=== PATIENT | female | born 1950 | race Caucasian/White ===

== ENCOUNTER 2023-05-12 09:17 | Outpatient (AMB) | payer MEDICARE, SELFPAY ==
--- NOTE | 2023-05-12 09:23 | A.OFFVIS_ITS ---
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 Accompanied by: Spouse Allergies ibuprofen [IBUPROFEN] Allergy (Unknown, Verified 05/12/23 09:28) ABD PAIN Penicillins [PENICILLINS] Allergy (Unknown, Verified 05/12/23 09:28) RASH amlodipi Adverse Reaction (Intermediate, Uncoded 05/12/23 09:45) Unknown Medication List - Last Reconciled 05/12/23 by Brent Dillard MD carisoprodol (Soma) 350 mg PO TID clonazepam 0.5 mg PO BID diltiazem HCl ER 60 mg PO Q12H ketorolac 0.5% drps ophthalmic (eye) latanoprost 0.005% drps ophthalmic (eye) netarsudil 0.02% (Rhopressa) drps ophthalmic (eye) onabotulinumtoxinA (Botox) 50 units intradermal tramadol 50 mg PO BEDTIME HPI HPI Comments History of Present Illness Details Due to this here for consultation regarding left bundle-branch block. It seems that she has been seen at [facility] for a long time but not in the last couple of years. She states she has had the problem for more than a decade or so. She also has hypertension. She has been having longstanding palpitations and several years ago, diltiazem was started and it seems that septal lot. She is also tried amlodipine few years a pack for hypertension and that led to leg swelling. No known coronary artery disease or myocardial infarction or cardiomyopathy or any other cardiac issues or otherwise. She has lot of neck and back issues and previous operations for the same. [facility] Surgical History (Updated 05/12/23 @ 09:31 by Alvina Norwood) History of back surgery Family History (Updated 05/12/23 @ 09:32 by Alvina Norwood) Father Heart problem Mother Heart problem Social History (Updated 05/12/23 @ 09:33 by Alvina Norwood) Alcohol intake: never Patient Tobacco Use Status: Never used Tobacco Substance Use Type: Marijuana Review of Systems Const Denies chills, Denies daytime sleepiness, Denies fatigue, Denies fever(s), Denies frequent falls, Denies night sweats, Denies snoring, Denies weakness, Denies weight gain and Denies weight loss Eyes Denies loss of vision ENT Denies dizziness and Denies hearing loss Card Denies chest pain, Denies chest pain with activity, Denies syncope, Denies rapid heart rate, Denies edema, Denies claudication, Denies leg edema, Denies lightheadedness, Denies palpitations, Denies dyspnea, Denies dyspnea on exertion and Denies orthopnea Resp Denies cough, Denies excessive phlegm production, Denies dyspnea, Denies dyspnea on exertion, Denies snoring and Denies wheezing GI Denies abdominal pain, Denies hematochezia, Denies change in bowel habits, Denies change in stool character, Denies heartburn, Denies nausea and Denies vomiting Denies hematuria, Denies urinary frequency and Denies dysuria Musc Denies arthralgias, Denies muscle weakness, Denies numbness and Denies tingling Skin/Breast Denies nail changes and Denies rash Neuro Denies Abnormal speech present, Denies dizziness, Denies syncope, Denies frequent falls, Denies loss of vision, Denies memory loss, Denies numbness, D enies tingling and Denies weakness Psych Denies depression and Denies memory loss Endo Denies fatigue and Denies palpitations Aller/Immun Denies wheezing Physical Exam Vital Signs: Last Vital Signs Pulse 65 05/12/23 09:28 BP 134/76 05/12/23 09:28 BMI result Body Mass Index 25.8 Const General: comfortable and no acute distress Orientation/consciousness: patient oriented x3 HEENT Other: Unremarkable Head: Yes normal to inspection Neck Neck: Yes normal visual inspection Chest Chest palpation & inspection: normal inspection of the chest Resp Auscultation: clear to auscultation bilaterally Cardio Palpation: normal PMI Heart sounds: S1 normal heart sound present, S2 normal heart sound present, no gallops, no murmurs and no rubs GI Palpation (GI): Soft to palpation Back/Spine/Pelvis Other: unremarkable Skin General skin exam: no rashes or lesions noted Neuro General: patient oriented x3 Speech: No Abnormal speech present Extrem General: Yes normal to inspection Psych Mental Status: mental status grossly normal Office Procedures EKG Details: EKG with possible ectopic atrial rhythm at 69/Min; incomplete left bundle-branch block pattern. [id number], Complete Assessment & Plan Assessment & Plan (1) Incomplete left bundle branch block (LBBB): Code(s): I44.7 - Left bundle-branch block, unspecified (2) Ectopic atrial rhythm: Code(s): I49.1 - Atrial premature depolarization Plan Need to review old records. Will request them from [facility]. No specific med changes for now. Will request an echocardiogram for cardiac function assessment. Discussed with significant other. Orders: Orders CA echo transthoracic complete Today I44.7 - Left bundle-branch block, unspecified Coding Level of Care Code New Pt Level 3 (77845) Diagnoses Incomplete left bundle branch block (LBBB) I44.7 Ectopic atrial rhythm I49.1 CPT Codes EKG - CPT: 09560-[id number], Complete ([id number])
[2023-05-12 09:28] VITALS: BP 134/76; PULSE 65; BMI 25.8
== END 2023-05-12 09:56 | disposition home or self-care (01) ==
PROVIDERS: PCP Internal Medicine; Visit Provider Internal Medicine
DX: I44.7 Left bundle-branch block, unspecified (principal); I49.1 Atrial premature depolarization
CPT/HCPCS: 93010; 99203

== ENCOUNTER → 2023-05-12 09:17 | Outpatient (BNVA) | payer MEDICARE, SELFPAY | PROVIDERS: PCP Internal Medicine; Visit Provider Internal Medicine | DX: I44.7 Left bundle-branch block, unspecified (principal); I49.1 Atrial premature depolarization | CPT/HCPCS: 93005; 99202 ==

== ENCOUNTER → 2023-06-04 09:39 | Outpatient (REF) | payer MEDICARE, SELFPAY ==
--- NOTE | 2023-06-04 09:42 | CA_ITS ---
Transthoracic Echocardiogram Patient (Last, First, Middle): Taryn Washburn A Gender: Female Date of : 1950 Age: 72 Procedure Date: 06/04/2023 Procedure Type: Transthoracic Echocardiogram Location: OP Height: 162.56 cm Weight: 65.77 kg BSA: 1.71 m2 Heart Rate: bpm BP: 130 / 80 mmHg Anesthesiologists' Assistant: TO Referring MD: Brent Dillard MD Inspector Metal Fabricating: Gregorio Adame MD Symptoms: I44.7 - Left bundle-branch block, unspecified Study Quality: Fair/Contrast ECG Rhythm: Sinus Conclusions: - 1. Normal LV ejection fraction of 60 65% with impaired relaxation filling pattern 2. Cardiac valvular Dopplers within normal limits 3. Normal RV systolic pressure Findings Procedure Information Contrast agent, definity, is being given per protocol without apparent complications. Left Ventricle Normal left ventricular size, thickness, and systolic function. The visually estimated ejection fraction is between 60-65%. There is paradoxical septal motion consistent with a left bundle branch block. Spectral Doppler is indicative of an impaired relaxation filling pattern. E/E prime ratio is between 8 and 15 consistent with indeterminate filling pressures. Right Ventricle Normal right ventricular cavity size and systolic function. Atria The left atrium is normal in size. There is no evidence of interatrial shunt. The right atrium was not well visualized. Aortic Valve The aortic valve structure and function is likely normal. There is no aortic valve stenosis. There is no aortic valve regurgitation. Mitral Valve Likely normal mitral valve structure and function. There is trace mitral valve regurgitation. There is no mitral valve stenosis. Pulmonic Valve The pulmonic valve was not well visualized. Tricuspid Valve Likely normal tricuspid valve structure and function. There is trace tricuspid valve regurgitation. The right ventricular systolic pressure is normal. The right ventricular systolic pressure is 27 mmHg. Normal right atrial pressure. There is no evidence of pulmonary hypertension. Great Vessels All visible segments of the aorta are normal in size. The pulmonary artery was not well visualized. Venous The inferior vena cava is normal in size and collapses greater than 50% with inspiration. Pericardium/Pleural The pericardium was not well visualized. Prior Study Comparison No prior study available for comparison. Measurements 2D Linear Measurements IVSd: 1.11 0.6-0.9/0.6-1.0 cm LVIDd: 4.21 3.9-5.3/4.2-5.9 cm LVIDd Index: 2.46 2.4-3.2/2.2-3.1 cm/m2 LVIDs: 2.98 2.0-3.6 cm LVPWd: 1.00 0.7-1.1 cm LA Diam: 3.10 2.7-3.8/3.0-4.0 cm LAIDs Index: 1.81 1.5-2.3 cm/m2 LV Mass: 184.31 67-162/88-224 g LV Mass Index: 107.78 43-95/49-115 g/m2 LVOT Diam: 2.10 3.0+(-)1.3 cm 2D Systolic Function EF 4C: 67.60 >55% EF 2C: 57.90 >55% EF BiP: 62.40 >55% Mitral Valve MV Pk E: 0.63 MV PK A: 0.71 MV Decel Time: 252.00 E/A: 0.90 E'Lateral: 7.62 E'Medial: 5.22 E/E' Med: 12.00 E/E' Lat: 8.20 PHT: 74.00 MVA PHT: 2.97 Decel Kershaw: 2.49 Aortic Valve AoV Pk Seymour: 1.39 AoV Mn Seymour: 0.92 AoV VTI: 0.27 AoV Pk Grad: 8.00 Aov Mn Grad: 4.00 HUMBERTO Cont.VTI: 3.54 LVOT LVOT Pk Seymour: 1.14 LVOT Mn Seymour: 0.73 LVOT VTI: 0.28 LVOT Pk Grad: 5.00 LVOT Mn Grad: 3.00 LVOT Diam: 2.10 LVOT Area: 3.46 Diastolic Function MV Pk E: 0.63 MV Pk A: 0.71 E/A: 0.90 E'Medial: 5.22 E/E' Med: 12.00 E' Laterial: 7.62 E/E' Lat: 8.20 Right Ventricle TAPSE (mm): 22.60 TVS' Seymour: 10.00 Tricuspid Valve TR Pk Seymour: 2.44 TR Pk Grad: 24.00 RA Press: 3.00 RVSP: 27.00 Great Vessels Aorta Sinus of Valsalva: 3.00 2.0-3.5 cm Ao Asc: 3.10 2.1-3.4 cm Updated in Other Vendor System with Status of Final Gregorio Adame MD electronically signed on 06/05/2023 11:08:39 AM with status of Final
== END ==
LOC: HO.CARD 09:39
PROVIDERS: PCP Internal Medicine; Visit Provider Internal Medicine
DX: I44.7 Left bundle-branch block, unspecified (principal)
CPT/HCPCS: 93306; Q9957

== ENCOUNTER → 2023-06-04 09:42 | Outpatient (BNV) | payer MEDICARE, SELFPAY | PROVIDERS: PCP Internal Medicine; Visit Provider Internal Medicine Cardiovascular Disease | DX: R94.31 Abnormal electrocardiogram [ECG] [EKG] (principal); I44.7 Left bundle-branch block, unspecified | CPT/HCPCS: 93306 ==

== ENCOUNTER 2023-08-03 10:39 | Outpatient (AMB) | payer MEDICARE, SELFPAY ==
[2023-08-03 10:42] VITALS: BP 130/70; PULSE 68; O2SAT 99; BMI 25.4
--- NOTE | 2023-08-03 10:42 | MHC.OFFVIS ---
Vital Signs 08/03/23 10:42 Height 5 ft 3 in Weight 143 lb 4.807 oz BMI 25.4 BP 130/70 Blood Pressure Location Lt brachial Position Sitting Pulse 68 Pulse Source Pulse Oximeter Pulse Oximetry (%) 99 Oxygen Delivery Method Room Air Intake Visit Reasons: f/up echo Allergies ibuprofen [IBUPROFEN] Allergy (Unknown, Verified 05/12/23 09:28) ABD PAIN Penicillins [PENICILLINS] Allergy (Unknown, Verified 05/12/23 09:28) RASH amlodipi Adverse Reaction (Intermediate, Uncoded 05/12/23 09:45) Unknown Medication List - Last Reconciled 08/03/23 by Brent Dillard MD carisoprodol (Soma) 350 mg PO TID clonazepam 0.5 mg PO BID diltiazem HCl ER 60 mg PO Q12H ketorolac 0.5% drps ophthalmic (eye) latanoprost 0.005% drps ophthalmic (eye) netarsudil 0.02% (Rhopressa) drps ophthalmic (eye) onabotulinumtoxinA (Botox) 50 units intradermal tramadol 50 mg PO BEDTIME HPI Comments Details: Taryn Returns for follow-up. Recently seen in consultation regarding left bundle-branch block. She used to go to [facility] in the past but not recently. She has had the problem for a long time, more than a decade or so. Also has hypertension. Longstanding palpitations for which she Has been on diltiazem, again long-term. No known coronary disease, myocardial infarction or cardiomyopathy. [facility] Surgical History (Updated 05/12/23 @ 09:31 by Alvina Norwood) History of back surgery Family History (Updated 05/12/23 @ 09:32 by Alvina Norwood) Father Heart problem Mother Heart problem Social History (Updated 05/12/23 @ 09:33 by Alvina Norwood) Alcohol intake: never Patient Tobacco Use Status: Never used Tobacco Substance Use Type: Marijuana Review of Systems Const Denies weakness ENT Denies dizziness Card Denies chest pain, Denies chest pain with activity, Denies syncope, Denies rapid heart rate, Denies pedal edema, Denies edema, Denies leg edema, Denies lightheadedness, Denies palpitations, Denies dyspnea, Denies dyspnea on exertion and Denies orthopnea Resp Denies cough, Denies dyspnea and Denies dyspnea on exertion GI Denies hematochezia and Denies change in stool character Musc Denies abnormal gait, Denies muscle cramps, Denies muscle weakness, Denies numbness, Denies radiating pain into limb and Denies tingling Neuro Denies abnormal gait, Denies dizziness, Denies syncope, Denies numbness, Denies tingling and Denies weakness Endo Denies palpitations Physical Exam Vital Signs: Last Vital Signs Pulse 68 08/03/23 10:42 BP 130/70 08/03/23 10:42 Pulse Ox 99 08/03/23 10:42 Oxygen Delivery Method Room Air 08/03/23 10:42 BMI result Body Mass Index 25.4 Const General: comfortable and no acute distress Orientation/consciousness: patient oriented x3 HEENT Other: Unremarkable Head: Yes normal to inspection Neck Neck: Yes normal visual inspection Chest Chest palpation & inspection: normal inspection of the chest Resp Auscultation: clear to auscultation bilaterally Cardio Palpation: normal PMI Heart sounds: S1 normal heart sound present, S2 normal heart sound present, no gallops, no murmurs and no rubs GI Palpation (GI): Soft to palpation Back/Spine/Pelvis Other: unremarkable Skin General skin exam: no rashes or lesions noted Neuro General: patient oriented x3 Extrem General: Yes normal to inspection Psych Mental Status: mental status grossly normal Assessment & Plan Assessment & Plan (1) Incomplete left bundle branch block (LBBB): Code(s): I44.7 - Left bundle-branch block, unspecified Category: Medical (2) Ectopic atrial rhythm: Code(s): I49.1 - Atrial premature depolarization Category: Medical Plan In the recent EKG, possible ectopic atrial rhythm and with an incomplete left bundle-branch block pattern. Echocardiogram with LVEF of 60-65% and otherwise unremarkable. Exercise stress echocardiogram from [facility] 2014 was negative. Echo exercise duration was 9 minutes 20 seconds. And old NAVYA from 2007 from [facility] shows underlying sinus rhythm, supraventricular ectopy, paroxysmal atrial tachycardia, ventricular ectopy, bigeminy, trigeminy. Overall, longstanding incomplete left bundle-branch block without any evidence of cardiomyopathy or ischemic heart disease. No specific management and continue to monitor once a year. With regard to the palpitations, possibly from isolated PACs/PVCs. She is again taken diltiazem for a long time and no further changes. Follow-up in 1 year. In the interim, she will call with concerns. Total time spent including review of outside records, counseling, documentation, coordination of care 35 minutes. Coding Level of Care Code Est Pt Level 4 (59999) Diagnoses Incomplete left bundle branch block (LBBB) I44.7 Ectopic atrial rhythm I49.1
== END 2023-08-03 11:03 | disposition home or self-care (01) ==
PROVIDERS: PCP Internal Medicine; Visit Provider Internal Medicine
DX: I44.7 Left bundle-branch block, unspecified (principal); I49.1 Atrial premature depolarization
CPT/HCPCS: 99214

== ENCOUNTER → 2023-08-03 10:39 | Outpatient (BNVA) | payer MEDICARE, SELFPAY | PROVIDERS: PCP Internal Medicine; Visit Provider Internal Medicine | DX: I44.7 Left bundle-branch block, unspecified (principal); I49.1 Atrial premature depolarization | CPT/HCPCS: 99212 ==

== ENCOUNTER 2024-02-13 14:54 | Emergency (ER) | payer MEDICARE, SELFPAY ==
--- NOTE | ~2024-02-13 | XR_ITS ---
EXAMINATION: XR RIBS, LEFT CLINICAL INFORMATION: Pain COMPARISON: None available. TECHNIQUE: 3 views of the left ribs were obtained. Single frontal view of the chest FINDINGS: No pneumothorax. Minimal linear opacities at the bases compatible with scarring or discoid atelectasis. Lungs otherwise clear. Cardiomediastinal silhouette normal. Bone and soft tissues unremarkable. Left RIBS: Normal. No fracture. XR/XR ribs LT min 3V w CXR1V IMPRESSION: 1. No rib fracture. 2. No pneumothorax. Electronically signed by: Kal Henry MD 02/13/2024 03:44 PM EST
--- NOTE | ~2024-02-13 | CT_ITS ---
EXAMINATION: CT CHEST, ABDOMEN AND PELVIS WITHOUT CONTRAST CLINICAL INFORMATION: Left lower rib pain, history of crack while stretching COMPARISON: Rib series on the same day TECHNIQUE: Multidetector volumetric imaging was performed of the chest, abdomen and pelvis without contrast. Oral contrast was not administered. Sagittal and coronal reformatted images were obtained on the technologist's workstation. This CT examination was performed using dose optimization techniques as appropriate, variously including the following: *Automated exposure control *Adjustment of mA and/or kV according to patient size (this includes techniques or standardized protocols for targeted exams where dose is matched to indication/reason for exam; i.e. extremities or head) *Use of iterative reconstruction technique DLP: 586 mGy-cm FINDINGS: CHEST: PLEURA: There is no pleural effusion. No pneumothorax. LUNGS: There is atelectasis in the lingula and right middle lobe. There is mild bronchial wall thickening. No consolidation. No dominant suspicious pulmonary nodules. MEDIASTINUM: The heart is normal in size. Aorta and pulmonary artery are normal in caliber. No pericardial effusion. No mediastinal lymphadenopathy. No hilar lymphadenopathy. CORONARY ARTERY CALCIFICATION: Mild coronary artery calcifications. CHEST WALL/AXILLA: Unremarkable. No lymphadenopathy. ABDOMEN AND PELVIS: LIVER AND BILIARY TREE: Small cyst in the segment 7 of the liver. No suspicious liver lesions. No intrahepatic biliary ductal dilatation. GALLBLADDER: Unremarkable. PANCREAS: Unremarkable. SPLEEN: Unremarkable. ADRENAL GLANDS: Unremarkable. KIDNEYS AND URETERS: Unremarkable GASTROINTESTINAL TRACT: No obstruction. No inflammatory changes in the bowel. Moderate stool burden. Appendix not visualized. VASCULAR: Scattered atherosclerotic calcification in the aorta LYMPH NODES: No lymphadenopathy. PERITONEUM: No ascites. BLADDER: Unremarkable. PELVIC VISCERA: Unremarkable. ABDOMINAL AND PELVIC WALL: No appreciable hernia. OSSEOUS STRUCTURES: Bones are demineralized. Advanced degenerative changes at L5-S1 and L4-L5. 1 anterolisthesis of L5 on S1. 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 CT/CT chest wo IV con IMPRESSION: 1. No acute abnormality in the chest, abdomen or pelvis. 2. Mild bronchial wall thickening suggesting small airways disease. No consolidation. 3. Mild coronary artery calcifications. 4. Degenerative changes in the lower lumbar spine. Grade 1 anterolisthesis of L5 on S1. 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 Electronically signed by: Frederic Graham MD 02/13/2024 05:43 PM EST RP
--- NOTE | ~2024-02-13 | XR_ITS ---
EXAMINATION: XR THORACIC SPINE CLINICAL INFORMATION: Pain COMPARISON: None available. TECHNIQUE: 3 views of the thoracic spine were obtained. FINDINGS: There is no fracture or bone destruction seen and the vertebral alignment is normal. There is no disc space narrowing. There is no abnormality of the paraspinal soft tissues. XR/XR thoracic spine 3V IMPRESSION: Unremarkable examination. Electronically signed by: Kal Henry MD 02/13/2024 03:45 PM [facility]
--- NOTE | ~2024-02-13 | CT_ITS ---
EXAMINATION: CT CHEST, ABDOMEN AND PELVIS WITHOUT CONTRAST CLINICAL INFORMATION: Left lower rib pain, history of crack while stretching COMPARISON: Rib series on the same day TECHNIQUE: Multidetector volumetric imaging was performed of the chest, abdomen and pelvis without contrast. Oral contrast was not administered. Sagittal and coronal reformatted images were obtained on the technologist's workstation. This CT examination was performed using dose optimization techniques as appropriate, variously including the following: *Automated exposure control *Adjustment of mA and/or kV according to patient size (this includes techniques or standardized protocols for targeted exams where dose is matched to indication/reason for exam; i.e. extremities or head) *Use of iterative reconstruction technique DLP: 586 mGy-cm FINDINGS: CHEST: PLEURA: There is no pleural effusion. No pneumothorax. LUNGS: There is atelectasis in the lingula and right middle lobe. There is mild bronchial wall thickening. No consolidation. No dominant suspicious pulmonary nodules. MEDIASTINUM: The heart is normal in size. Aorta and pulmonary artery are normal in caliber. No pericardial effusion. No mediastinal lymphadenopathy. No hilar lymphadenopathy. CORONARY ARTERY CALCIFICATION: Mild coronary artery calcifications. CHEST WALL/AXILLA: Unremarkable. No lymphadenopathy. ABDOMEN AND PELVIS: LIVER AND BILIARY TREE: Small cyst in the segment 7 of the liver. No suspicious liver lesions. No intrahepatic biliary ductal dilatation. GALLBLADDER: Unremarkable. PANCREAS: Unremarkable. SPLEEN: Unremarkable. ADRENAL GLANDS: Unremarkable. KIDNEYS AND URETERS: Unremarkable GASTROINTESTINAL TRACT: No obstruction. No inflammatory changes in the bowel. Moderate stool burden. Appendix not visualized. VASCULAR: Scattered atherosclerotic calcification in the aorta LYMPH NODES: No lymphadenopathy. PERITONEUM: No ascites. BLADDER: Unremarkable. PELVIC VISCERA: Unremarkable. ABDOMINAL AND PELVIC WALL: No appreciable hernia. OSSEOUS STRUCTURES: Bones are demineralized. Advanced degenerative changes at L5-S1 and L4-L5. 1 anterolisthesis of L5 on S1. 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 CT/CT abdomen pelvis wo IV con IMPRESSION: 1. No acute abnormality in the chest, abdomen or pelvis. 2. Mild bronchial wall thickening suggesting small airways disease. No consolidation. 3. Mild coronary artery calcifications. 4. Degenerative changes in the lower lumbar spine. Grade 1 anterolisthesis of L5 on S1. 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 Electronically signed by: Frederic Graham MD 02/13/2024 05:43 PM [facility]
--- NOTE | 2024-02-13 15:05 | ED_ITS ---
HPI - General Adult General Chief complaint: Back Pain/Injury Stated complaint: Left side back pain/ surgery Time Seen by Provider: 02/13/24 15:37 Source: patient Mode of arrival: ambulatory Limitations: no limitations History of Present Illness ED Provider: Hector Choe PA-C HPI narrative: 73-year-old female history of hypertension and chronic back pain with back surgery 7 years ago presents to ED for evaluation of pain and hearingcracking sound in the left lower rib/flank pain while was stretching her back. Patient states she was having some lower back discomfort so her picked her up and stretched her backwards and she heard a crack in the left lower rib flank area and since then has had pain ever since. Patient states this occurred around 11:00. Patient states she has had buccal fracture in left lower rib in the past from same stretching her did. Patient denies any recent long travel or recent surgery. Patient denies any pleurisy, coughing up blood, any history of blood clots. Patient denies any chest pain or shortness of breath. Patient presently denies any back pain, urinary bowel incontinence, IV drug use, or immunocomprismed disease Related Data Home Medications ?Medication ?Instructions ?Recorded ?Confirmed carisoprodol 350 mg tablet (Soma) 350 mg PO TID 05/12/23 08/03/23 clonazepam 0.5 mg tablet 0.5 mg PO BID 05/12/23 08/03/23 diltiazem HCl 60 mg 60 mg PO Q12H 05/12/23 08/03/23 capsule,extended release 12 hr ketorolac 0.5 % eye drops drp ophthalmic (eye) 05/12/23 08/03/23 latanoprost 0.005 % eye drops drp ophthalmic (eye) 05/12/23 08/03/23 netarsudil 0.02 % eye drops drp ophthalmic (eye) 05/12/23 08/03/23 (Rhopressa) onabotulinumtoxinA 100 unit 50 unit intradermal 05/12/23 08/03/23 solution for injection (Botox) tramadol 50 mg tablet 50 mg PO BEDTIME 05/12/23 08/03/23 Allergies Allergy/AdvReac Type Severity Reaction Status Date / Time ibuprofen [IBUPROFEN] Allergy Unknown ABD PAIN Verified 02/13/24 15:07 Penicillins [PENICILLINS] Allergy Unknown RASH Verified 02/13/24 15:07 amlodipi AdvReac Intermediate Unknown Uncoded 05/12/23 09:45 Review of Systems 2 Review of Systems: Lower rib/flank pain. hear cracked after being strectched out for back pain. Yes all other systems are reviewed and are negative [facility] Past Medical History Surgical History (Updated 05/12/23 @ 09:31 by Alvina Norwood) History of back surgery Family History Family History (Updated 05/12/23 @ 09:32 by Alvina Norwood) Father Heart problem Mother Heart problem Social History Social History (Updated 05/12/23 @ 09:33 by Alvina Norwood) Alcohol intake: never Patient Tobacco Use Status: Never used Tobacco Substance Use Type: Marijuana Advance Directives: Yes Advance Directives Information Provided: No Advance Directives on File: No Do you have a plan to hurt others: No Plan Physical Exam ED Vital Signs: Vital Signs - 24 hr 02/13/24 15:06 02/13/24 16:20 02/13/24 17:27 Temperature 97.8 F 97.2 F 98.2 F Pulse Rate 64 71 65 Respiratory Rate 16 16 16 Blood Pressure 153/87 H 155/89 H 150/72 H Pulse Oximetry 95 96 98 Oxygen Delivery Method Room Air Room Air Room Air 02/13/24 18:40 Temperature 98.2 F Pulse Rate 65 Respiratory Rate 16 Blood Pressure 150/72 H Pulse Oximetry 98 Oxygen Delivery Method Room Air BMI result Body Mass Index 24.8 Const General: cooperative, healthy appearing, comfortable, no acute distress, well developed, alert, awake and Physically active Orientation/consciousness: patient oriented x3 HENMT Head: Yes normal to inspection, Yes No palpable skull fracture present, Yes normocephalic and Yes atraumatic Eyes General: appearance normal, both eyes and all related structures Neck Neck: Yes normal visual inspection, Yes full ROM, Yes no lymphadenopathy, Yes no meningeal signs, Yes trachea midline, Yes supple, No anterior neck swelling and No tender Chest Chest palpation & inspection: normal inspection of the chest and normal palpation of entire chest wall Resp Other: Positive for lower rib tenderness on palpation Effort & Inspection: normal respiratory effort and able to speak in complete sentences Auscultation: clear to auscultation bilaterally GI Inspection: Yes normal to inspection Palpation (GI): Soft to palpation, not firm, nontender, no guarding and not rigid Abdomen image: 2 1. Positive for tenderness on palpation. Positive for pain on range of motion and movement of left upper extremity. Negative for rash, crepitus, ecchymosis, or deformity. Negative for swelling or mass on palpation General: Yes no CVA tenderness Back/Spine/Pelvis Other: Negative for spine tenderness on palpation Back: no CVA tenderness and No back tenderness Back/spine/pelvis image: 2 1. In for tenderness on palpation. Positive for pain on range of motion. Negative for rash, ecchymosis, erythema, or deformity. Skin General skin exam: no rashes or lesions noted, elasticity normal and turgor normal Neuro General: patient oriented x3, gait normal, tone normal, moves all extremities, Normal light touch and pain sensation, no meningeal signs, no focal motor deficits, CN's II-XI intact bilaterally and normal sensation to monofilament Extrem General: Yes normal to inspection, Yes full ROM and Yes capillary refill normal Psych Appearance: grossly normal, well kempt and not disheveled Course Course Course Narrative: This is an RME: Additional HPI, ROS, PE not included below will be deferred to primary provider. RME assessment and note performed by: June Krishna PA-C This is a 79-[id number]-grc-female, with a hx of multiple back surgeries, incomplete LBBB, and who presents to the ER with complaints of back pain since today. Pt states that her picked her up as he normally does and this caused her back to crack. She is now having worsening pain in her back and her left ribs. Took pain meds at home which provided her without relief. Plan: Xr ribs, t spine Medical Decision Making Medical Decision Making [facility] Narrative: 73-year-old female presents to ED for left lower rib back flank pain worse on movement and hearing cracking sound since 11:00 after picked up and stretched out her back for pain relief. Patient denies any pleurisy, chest pain, shortness of breath. Patient denies any urinary/bowel incontinence or pain going down to lower extremities. Patient denies any history of IV drug use or immunocompromise diseases. Patient states no fever or chills. Pain is just worse on movement. Rib x-ray negative for fracture. Spine x-ray shows lumbar radiculopathy. Chest CT negative for pneumonia, hemothorax, hemothorax, pneumothorax, rib fractures. Abdominal CT scan shows lumbar radiculopathy. UA negative for UTI. Not suspecting PE. Patient denies any pleurisy, shortness of breath, chest pain, recent long travel, recent surgery. Patient is not tachycardic. Symptoms occurred as soon as stretch her back and she heard a crack in left lower rib flank back area. Most likely muscle tear muscle strain. EKG negative STEMI 6:25pm: EKG negative STEMI. Left bundle-branch block is old. Patient's troponin negative after having symptoms since 11:00pm. Presently patient states she has no pain and does not want any pain medications. Patient states she has pain medication at home. UA negative for UTI. Kidney function is normal. No need CTA or D-dimer. Not suspecting PE. Patient explained worrisome signs and informed to return to the ED immediately. Not suspect an epidural abscess or cauda equinus. Not suspecting PE. Not suspecting CHF. Not suspecting renal artery thrombosis. Not suspecting osteomyelitis. Patient given copy of labs and images for follow-up with primary care provider. Differential Diagnosis Differential Diagnoses: The differential diagnosis associated with the presentation includes (Rib fracture, pneumonia, hemothorax, UTI, flank pain, lumbar radiculopathy) Admission/Observation Consideration of admission/observation: Escalation of care including admission/observation considered Lab Data MDM Lab Attestation statement: I reviewed the patient's lab results. 02/13/24 17:37 02/13/24 17:37 Labs: Lab Results 02/13/24 02/13/24 Range/Units 17:36 17:37 WBC 11.1 H (4.8-10.8) X10*3/uL RBC 4.10 L (4.20-5.50) X10*6/uL Hgb 12.9 (12.0-16.0) g/dl Hct 38.1 (37.0-47.0) % MCV 92.9 (80.0-98.0) fL MCH 31.5 (27.0-33.0) pg MCHC 33.9 (31.0-35.0) g/dl RDW 12.8 (11.0-16.0) % Plt Count 366 (160-400) X10*3/uL MPV 9.4 (9.4-12.3) fL Immature Gran % (Auto) 0.2 (0.0-0.4) % Neut % (Auto) 67.2 (45-73) % Lymph % (Auto) 25.7 (20-40) % Posey % (Auto) 5.8 (2-11) % Eos % (Auto) 0.6 (0-4) % Baso % (Auto) 0.5 (0-2) % Lymph # (Auto) 2.9 (1.2-4.9) X10*3/uL Posey # (Auto) 0.6 (0.1-1.2) X10*3/uL Eos # (Auto) 0.1 (0.0-0.4) X10*3/uL Baso # (Auto) 0.1 (0.0-0.2) X10*3/uL Abs Immat Gran (auto) 0.02 (0.00-0.03) X10*3/uL Absolute Neuts (auto) 7.5 (2.0-8.3) x10*3/uL Absolute Nucleated RBC 0.000 (0.0-0.012) X10*3/uL Nucleated RBC % (auto) 0.0 (0.0-0.2) /100WBC PT 11.2 (10.9-12.4) SEC INR 1.0 (0.9-1.1) APTT 30.6 (26.0-36.8) SEC Sodium 141 (135-145) mmol/L Potassium 4.2 (3.3-5.1) mmol/L Chloride 107 (96-108) mmol/L Carbon Dioxide 21 L (22-29) mmol/L Anion Gap 17 (12-20) BUN 16 (9-16) mg/dL Creatinine 0.83 (0.5-1.4) mg/dL Estim Creat Clear Calc 52.4 Estimated GFR > 60 Random Glucose 94 (60-115) mg/dL Calcium 9.6 (8.4-10.2) mg/dL Total Bilirubin 0.2 (0.0-1.0) mg/dL AST 21 (5-31) U/L ALT 8 (0-31) U/L Alkaline Phosphatase 95 (39-117) U/L Troponin I High Sens < 2.7 (<3.5-17.0) ng/L Total Protein 7.1 (6.5-8.0) g/dL Albumin 4.2 (3.5-5.0) g/dL Urine Color Yellow Urine Appearance Clear Urine pH 6.5 (5.0-9.0) Ur Specific [place] <= 1.005 (1.005-1.025) Urine Protein Negative (Neg-Trace) mg/dL Urine Glucose (UA) Negative (Negative) mg/dL Urine Ketones Negative (Negative) mg/dL Urine Blood Negative (Negative) Urine Nitrite Negative (Negative) Ur Leukocyte Esterase Small (1+) H (Negative) Urine RBC 0-2 (0-2) /HPF Urine WBC 0-5 (0-5) /HPF Ur Squamous Epith Cells 0-2 (0-2) /HPF Urine Bacteria None Seen (None Seen) Hyaline Casts 0-2 (0-2) /LPF Independent Interpretation I performed an independent interpretation of an: EKG (Negative STEMI), Plain X- Ray and CT Scan Radiology Impression Discussion of test interpretation with radiology: I have reviewed the radiologist's reading. Independent Historian Clinical information obtained from an independent historian. History obtained from or confirmed by: Other (patient) External Record Review External record reviewed: Other (prior visits) Prescription Management I considered prescription management with: Pain Medication Discharge Plan Discharge Clinical Impression: Lumbar radiculopathy, Strain of abdominal wall Patient Disposition: Home, Self-Care Instructions: Muscle Strain (ED), Lumbar Radiculopathy (ED), Abdominal Pain (ED), Cold Compress or Soak (ED) Additional Instructions: Return to the ED immediately for any urinary/bowel incontinence, dysuria, hematuria, weakness/paralysis of lower extremities, chest pain, shortness of breath, abdominal pain, chest pain on inspiration, coughing up blood, calf pain, leg swelling, fever, chills, dizziness, rash, fever, chills, or any other concerning symptoms. Continue taking your pain meds your prescribed at home as needed. Recommend follow-up with primary care provider. Prescriptions: No Action tramadol 50 mg tablet 50 mg PO BEDTIME diltiazem HCl 60 mg capsule,extended release 12 hr 60 mg PO Q12H clonazepam 0.5 mg tablet 0.5 mg PO BID carisoprodol [Soma] 350 mg tablet 350 mg PO TID latanoprost 0.005 % drops ophthalmic (eye) ketorolac 0.5 % drops ophthalmic (eye) Rhopressa 0.02 % drops ophthalmic (eye) Botox 100 unit recon soln 50 unit intradermal Stand Alone Forms: Work/School Release Interventions: ED Discharge Assessment Last Done: 02/13/24 18:40 Discharge Date/Time: 02/13/24 18:40 Print Language: Slovak
[2024-02-13 15:06] VITALS: BP 153/87; PULSE 64; RESP 16; TEMP 36.6; O2SAT 95; BMI 24.8
[2024-02-13 16:20] VITALS: BP 155/89; PULSE 71; RESP 16; TEMP 36.2; O2SAT 96
--- NOTE | 2024-02-13 17:14 | ECG_ITS ---
Test Reason : RIB PAIN Blood Pressure : / mmHG Vent. Rate : 057 BPM Atrial Rate : 057 BPM P-R Int : 146 ms QRS Dur : 122 ms QT Int : 454 ms P-R-T Axes : 060 -34 084 degrees QTc Int : 441 ms Sinus bradycardia Left axis deviation Left bundle branch block Abnormal ECG No previous ECGs available Referred By: Hector Choe Electronically Signed By:AMERICA VILLELA MD
[2024-02-13 17:27] VITALS: BP 150/72; PULSE 65; RESP 16; TEMP 36.8; O2SAT 98
[2024-02-13 17:42] LABS: MANUAL DIFF FLAG NO
[2024-02-13 17:44] LABS: Appearance Urine Clear; Color Urine Yellow; Glucose Urine UA Negative (Negative); Leukocyte Esterase Urine Small (1+) (Negative); Nitrite Urine Negative (Negative); PH 6.5 (5.0-9.0); Specific Gravity - Urine <= 1.005 (1.005-1.025); UMIC TRIGGER UACC YES; Urine Blood Negative (Negative); Urine Ketones Negative (Negative); Urine Protein Negative (Neg-Trace)
[2024-02-13 17:46] LABS: Basophils Absolute Auto 0.1 X10*3/uL (0.0-0.2); Basophils Percent Auto 0.5 % (0-2); Eosinophils Absolute Auto 0.1 X10*3/uL (0.0-0.4); Eosinophils Percent Auto 0.6 % (0-4); Hematocrit 38.1 % (37.0-47.0); Hemoglobin 12.9 g/dl (12.0-16.0); Imm Gran Abs Auto 0.02 X10*3/uL (0.00-0.03); Imm Gran Pct Auto 0.2 % (0.0-0.4); Lymphocytes Absolute Auto 2.9 X10*3/uL (1.2-4.9); Lymphocytes Percent Auto 25.7 % (20-40); Mean Corpuscular HGB Conc 33.9 g/dl (31.0-35.0); Mean Corpuscular Hemoglobin 31.5 pg (27.0-33.0); Mean Corpuscular Volume 92.9 fL (80.0-98.0); Mean Platelet Volume 9.4 fL (9.4-12.3); Monocytes Absolute Auto 0.6 X10*3/uL (0.1-1.2); Monocytes Percent Auto 5.8 % (2-11); Neutrophils Absolute Auto 7.5 x10*3/uL (2.0-8.3); Neutrophils Percent Auto 67.2 % (45-73); Platelet Count 366 X10*3/uL (160-400); Red Cell Distribution Width 12.8 % (11.0-16.0); White Blood Count 11.1 X10*3/uL (4.8-10.8)
[2024-02-13 17:50] LABS: Prothrombin Time 11.2 SEC (10.9-12.4)
[2024-02-13 17:53] LABS: Partial Thromboplastin Time 30.6 SEC (26.0-36.8)
[2024-02-13 17:59] LABS: Bacteria Urine None Seen (None Seen); Hyaline Casts Urine 0-2 /LPF (0-2); RBC Urine 0-2 /HPF (0-2); Squamous Epithelial Cell Urine 0-2 /HPF (0-2); UACC Culture Trigger YES; WBC Urine 0-5 /HPF (0-5)
[2024-02-13 18:02] LABS: Alanine Aminotransferase 8 U/L (0-31); Albumin Level 4.2 g/dL (3.5-5.0); Alkaline Phosphatase 95 U/L (39-117); Anion Gap 17 (12-20); Aspartate Amino Transferase 21 U/L (5-31); Bilirubin Total 0.2 mg/dL (0.0-1.0); Blood Urea Nitrogen 16 mg/dL (9-16); Calcium 9.6 mg/dL (8.4-10.2); Carbon Dioxide 21 mmol/L (22-29); Chloride 107 mmol/L (96-108); Creatinine Clr Calc Pharmacy 52.4; Estimated Glomerular Filt Rate > 60; Glucose Random 94 mg/dL (60-115); Potassium 4.2 mmol/L (3.3-5.1); Sodium 141 mmol/L (135-145); Total Protein 7.1 g/dL (6.5-8.0)
[2024-02-13 18:06] LABS: Troponin-I High Sensitivity < 2.7 ng/L (<3.5-17.0)
[2024-02-13 18:40] VITALS: BP 150/72; PULSE 65; RESP 16; TEMP 36.8; O2SAT 98
--- NOTE | 2024-02-13 18:41 | PC.NURSE ---
nad, steady gait, skin wpd, inst reviewed
== END 2024-02-13 18:40 | disposition home or self-care (01) ==
PROVIDERS: Physician Assistant; Emergency Provider Emergency Medicine Emergency Medical Services; PCP Internal Medicine
DX: S39.011A Strain of muscle, fascia and tendon of abdomen, initial encounter (principal); M54.16 Radiculopathy, lumbar region; R07.81 Pleurodynia; R10.2 Pelvic and perineal pain; M54.6 Pain in thoracic spine; X50.9XXA Other and unspecified overexertion or strenuous movements or postures, initial encounter; Y93.89 Activity, other specified; Y92.89 Other specified places as the place of occurrence of the external cause; Y99.8 Other external cause status; Z79.899 Other long term (current) drug therapy; Z51.81 Encounter for therapeutic drug level monitoring
CPT/HCPCS: 36415; 71101; 71250; 72072; 74176; 80053; 81001; 84484; 85025; 85610; 85730; 87086; 93005; 99284

== ENCOUNTER → 2024-02-13 17:14 | Outpatient (BNV) | payer MEDICARE, SELFPAY | PROVIDERS: Emergency Provider Emergency Medicine Emergency Medical Services; PCP Internal Medicine; Visit Provider Internal Medicine Cardiovascular Disease | DX: R00.1 Bradycardia, unspecified (principal); I44.7 Left bundle-branch block, unspecified; R94.31 Abnormal electrocardiogram [ECG] [EKG] | CPT/HCPCS: 93010 ==

== ENCOUNTER 2024-04-11 13:01 | Inpatient (IN) | payer MEDICARE, SELFPAY ==
--- NOTE | ~2024-04-11 | CT_ITS ---
EXAMINATION: CT ABDOMEN AND PELVIS WITH CONTRAST CLINICAL INFORMATION: Abdominal pain. Bloody stools and history of colitis COMPARISON: None available. TECHNIQUE: Multidetector volumetric images were obtained from the superior aspect of the liver through the pubic symphysis following administration 85 mL of Omnipaque 350 intravenous contrast. Sagittal and coronal reformatted images were obtained on the technologist's workstation. Oral contrast: No This CT examination was performed using dose optimization techniques as appropriate, variously including the following: *Automated exposure control *Adjustment of mA and/or kV according to patient size (this includes techniques or standardized protocols for targeted exams where dose is matched to indication/reason for exam; i.e. extremities or head) *Use of iterative reconstruction technique DLP: 429 mGy-cm FINDINGS: LUNG BASES: There is platelike atelectasis in bilateral lower lobes. The heart size is normal. No pericardial effusion seen. LIVER, GALLBLADDER, AND BILIARY TREE: The liver is normal in size, shape, and attenuation. There is an 8 mm hypodensity posterior segment right hepatic lobe no additional lesions seen. There is no intrahepatic ductal dilatation. Focal fatty deposition is seen along the falciform ligament. The gallbladder is unremarkable with no evidence of radiopaque gallstones, gallbladder wall thickening, or obvious pericholecystic inflammatory changes. PANCREAS: Unremarkable. SPLEEN: Unremarkable. ADRENAL GLANDS: Unremarkable. KIDNEYS AND URETERS: The kidneys are normal in size, shape, and attenuation. No hydronephrosis, hydroureter, or calculi seen. No perinephric stranding. BLADDER: Unremarkable. GASTROINTESTINAL TRACT: There is scattered stool and gas seen throughout the colon. There is diffuse mural thickening involving transverse, descending and sigmoid colon. No pericolic fat stranding seen. There is scattered sigmoid diverticuli seen. Cecum lies in the right midabdomen. No free air or free fluid. The small bowel loops are normal caliber. Appendix is not visualized. ABDOMINAL WALL: Tiny umbilical hernia containing fat is noted. LYMPH NODES: Normal. VASCULAR: Unremarkable. PELVIC VISCERA: The uterus is anteverted and appears unremarkable. No adnexal mass or free fluid seen. OSSEOUS STRUCTURES: Degenerative disc changes with vacuum disc and L4-5 and L5-S1 disc levels. There is grade 1 anterolisthesis L5 over S1. No aggressive lytic or sclerotic process seen. CT/CT abdomen pelvis w IV con IMPRESSION: Diffuse mural thickening involving transverse, descending and sigmoid colon suggestive of colitis likely inflammatory or infectious etiology. No pericolic fat stranding, bowel obstruction, free air or free fluid. Fleischner guidelines were followed. Electronically signed by: Chalino Fernandez MD 04/11/2024 04:56 PM EST
[2024-04-11 13:12] VITALS: BP 138/80; PULSE 82; O2SAT 100
--- NOTE | 2024-04-11 13:27 | ED_ITS ---
HPI - Nausea/Vomiting/Diarrhea General Chief complaint: General Medical Stated complaint: DIARRHEA/VOMITING PER EMS Time Seen by Provider: 04/11/24 13:14 Source: patient, EMS and old records reviewed Mode of arrival: EMS Limitations: no limitations History of Present Illness ED Provider: CHAYO VAUGHN Narrative: 73 yo female with PMH Of HTN, migraines, LBBB, occipital neuralgia, hemorrhagic ischemic colitis, here with c/o 3 days of intermittent abd cramps and diarrhea no travel or abx use. She has not had fevers. Has had nausea and one episode of vomiting. She has remote hx of hemorrhagic colitis 2 years ago - she is not on blood thinners. She has no pain now but feels weak and tired. She noted blood on the tissue today and in the bowl but no yovany clots it was brb and happened one time. Reminds her of her prior colitis MD elicited complaint: nausea, diarrhea and abdominal pain Pertinent past history: other (hemorrhagic colitis) Onset (ago): day(s) (3) Description of diarrhea: blood, mucus and watery Associated nausea: Yes Associated abdominal pain: Yes Location of pain: diffuse Radiation: diffuse Pain consistency: intermittent Severity: mild Quality: cramping Exacerbating factors: bowel movement Relieving factors: none Context: other Associated symptoms: loss of appetite, malaise, nausea/vomiting and weakness Related Data Home Medications ?Medication ?Instructions ?Recorded ?Confirmed carisoprodol 350 mg tablet (Soma) 350 mg PO TID 05/12/23 08/03/23 clonazepam 0.5 mg tablet 0.5 mg PO BID 05/12/23 08/03/23 diltiazem HCl 60 mg 60 mg PO Q12H 05/12/23 08/03/23 capsule,extended release 12 hr ketorolac 0.5 % eye drops drp ophthalmic (eye) 05/12/23 08/03/23 latanoprost 0.005 % eye drops drp ophthalmic (eye) 05/12/23 08/03/23 netarsudil 0.02 % eye drops drp ophthalmic (eye) 05/12/23 08/03/23 (Rhopressa) onabotulinumtoxinA 100 unit 50 unit intradermal 05/12/23 08/03/23 solution for injection (Botox) tramadol 50 mg tablet 50 mg PO BEDTIME 05/12/23 08/03/23 Allergies Allergy/AdvReac Type Severity Reaction Status Date / Time ibuprofen [IBUPROFEN] Allergy Unknown ABD PAIN Verified 04/11/24 13:42 Penicillins [PENICILLINS] Allergy Unknown RASH Verified 04/11/24 13:42 hydromorphone [From Dilaudid] AdvReac Unknown Verified 04/11/24 13:42 morphine AdvReac Agitated Verified 04/11/24 13:42 amlodipi AdvReac Intermediate Unknown Uncoded 04/11/24 13:42 Review of Systems 2 Review of Systems: Constitutional :No Fever, pos Chills ENT/Mouth : No sore throat, No Rhinorrhea Eyes: No Swelling, No Redness Cardiovascular : No Chest Pain, No SOB, NoEdema Respiratory : No Cough, No Sputum, No Wheezing Gastrointestinal : Positive Nausea, no Vomiting, positive Diarrhea, positive abdominal Pain, pos Hematochezia, No Melena Genitourinary : No Dysuria, No Urinary Frequency, No Hematuria, No Urgency Musculoskeletal : No joint pain, No Myalgias, No Joint Swelling Skin : No Skin Lesions, No rash Neuro : pos Weakness, No Numbness, No Dizziness, No Headache Psych : No Anxiety/Panic, No Depression Heme/Lymph: No Bruising, No Lymphadenopathy Endocrine : No Polyuria, No Polydipsia All other systems reviewed and are negative. Gastrointestinal: Gastrointestinal: Reports nausea PMFSH Past Medical History Attestation statement: The following information was validated with the patient. Source: old records reviewed Medical History (Updated 04/11/24 @ 17:15 by Latoya Mckeon DO) Occipital neuralgia Ectopic atrial rhythm Incomplete left bundle branch block (LBBB) Surgical History (Updated 05/12/23 @ 09:31 by Alvina Norwood) History of back surgery Family History Family History (Updated 05/12/23 @ 09:32 by Alvina Norwood) Father Heart problem Mother Heart problem Social History Social History (Updated 05/12/23 @ 09:33 by Alvina Norwood) Alcohol intake: never Patient Tobacco Use Status: Never used Tobacco Substance Use Type: Marijuana Advance Directives: Yes Advance Directives Information Provided: Yes Advance Directives on File: No Do you have a plan to hurt others: No Plan Physical Exam 2 Vital Signs: Vital Signs: Last Vital Signs Temp 97.8 F 04/11/24 13:33 Pulse 71 04/11/24 13:33 Resp 18 04/11/24 13:33 BP 149/70 H 04/11/24 13:33 Pulse Ox 100 04/11/24 13:33 O2 Del Method Room Air 04/11/24 13:33 BMI result Body Mass Index 21.6 Appearance: Alert. Oriented X3. No acute distress. Eyes: Pupils equal, round and reactive to light. ENT: Pharynx normal. Neck: Normal inspection. Neck supple. CVS: Normal heart rate and rhythm. Pulses normal. Respiratory: No respiratory distress. Breath sounds normal. Abdomen: Soft and nontender. Rectal: brown stool Skin: Skin warm and dry. Normal skin color. Normal skin turgor. Extremities: No lower extremity edema. No calf ttp Neuro: Oriented X 3. No motor deficit. No sensory deficit. Course Course Course Narrative: 225pm refusing antibiotics at this time it effects her ability to get botox injections Reevaluation(s) Reevaluation #1: agrees to antibiotics now 552pm Medications Administered Generic Name Dose Route Start Last Admin Trade Name Freq PRN Reason Stop Dose Admin Lactated Ringer's 1,000 mls @ 100 mls/hr 04/11/24 17:15 04/11/24 17:40 Lr IVCONT 100 mls/hr .Q10H ELIF Administration Discontinued Medications Generic Name Dose Route Start Last Admin Trade Name Freq PRN Reason Stop Dose Admin Ceftriaxone Sodium 1 gm 04/11/24 14:06 04/11/24 16:03 Ceftriaxone Sodium 1 Gm Vial IVPUSH 04/11/24 14:07 Not Given ONCE ONE Lactated Ringer's 1,000 mls @ 999 mls/hr 04/11/24 13:33 04/11/24 14:58 Lr IV 04/11/24 14:33 Infused .Q1H1M ONE Infusion Iohexol 100 ml 04/11/24 16:40 04/11/24 16:40 Iohexol 350 Mg/Ml 100 Ml Infus..Btl IV 04/11/24 16:41 85 ml ONCE ONE Administration Ondansetron HCl 4 mg 04/11/24 13:33 04/11/24 14:03 Ondansetron Hcl 4 Mg/2 Ml Vial IVPUSH 04/11/24 13:34 Not Given ONCE ONE Tramadol HCl 50 mg 04/11/24 16:27 04/11/24 16:39 Tramadol Hcl 50 Mg Tablet PO 04/11/24 16:28 50 mg ONCE ONE Administration Medical Decision Making Medical Decision Making [facility] Narrative: 73 yo female with PMH Of HTN, migraines, LBBB, occipital neuralgia, hemorrhagic ischemic colitis, here with c/o diarrhea but no risk factors no antibiotics use, had episode of bloody stools at this time basic labs, cultures, CT scan for colitis - no active GIB at this time, no severe pain to suggest acute ischemia. Declines antibiotics at this time and other medications beyond fluids Differential Diagnosis Differential Diagnoses: The differential diagnosis associated with the presentation includes Admission/Observation Consideration of admission/observation: Escalation of care including admission/observation considered still has nausea and pain does not want IV abx despite colitis will discuss and admit with hospitalist Consult Healthcare Provider Management of the patient was discussed with: Hospitalist (will admit) Lab Data [facility] Lab Attestation statement: I reviewed the patient's lab results. 04/11/24 13:55 04/11/24 13:55 Labs: Lab Results 04/11/24 04/11/24 04/11/24 Range/Units 13:52 13:55 14:14 WBC 17.1 H (4.8-10.8) X10*3/uL RBC 4.73 (4.20-5.50) X10*6/uL Hgb 14.9 (12.0-16.0) g/dl Hct 43.2 (37.0-47.0) % MCV 91.3 (80.0-98.0) fL MCH 31.5 (27.0-33.0) pg MCHC 34.5 (31.0-35.0) g/dl RDW 12.8 (11.0-16.0) % Plt Count 454 H (160-400) X10*3/uL MPV 9.8 (9.4-12.3) fL Immature Gran % (Auto) 0.4 (0.0-0.4) % Neut % (Auto) 72.0 (45-73) % Lymph % (Auto) 20.5 (20-40) % [place] % (Auto) 6.5 (2-11) % Eos % (Auto) 0.1 (0-4) % Baso % (Auto) 0.5 (0-2) % Lymph # (Auto) 3.5 (1.2-4.9) X10*3/uL [place] # (Auto) 1.1 (0.1-1.2) X10*3/uL Eos # (Auto) 0.0 (0.0-0.4) X10*3/uL Baso # (Auto) 0.1 (0.0-0.2) X10*3/uL Abs Immat Gran (auto) 0.06 H (0.00-0.03) X10*3/uL Absolute Neuts (auto) 12.4 H (2.0-8.3) x10*3/uL Absolute Nucleated RBC 0.000 (0.0-0.012) X10*3/uL Nucleated RBC % (auto) 0.0 (0.0-0.2) /100WBC Hold Purple Top SEE NOTE PT 11.2 (10.9-12.4) SEC INR 1.0 (0.9-1.1) Hold Blue Top SEE NOTE Sodium 142 (135-145) mmol/L Potassium 3.4 (3.3-5.1) mmol/L Chloride 107 (96-108) mmol/L Carbon Dioxide 23 (22-29) mmol/L Anion Gap 15 (12-20) BUN 22 H (9-16) mg/dL Creatinine 0.79 (0.5-1.4) mg/dL Estim Creat Clear Calc 59.8 Estimated GFR > 60 Random Glucose 102 (60-115) mg/dL Lactic Acid 1.9 (0.5-2.0) mmol/L Calcium 9.5 (8.4-10.2) mg/dL Magnesium 1.9 (1.6-2.6) mg/dL Total Bilirubin 0.4 (0.0-1.0) mg/dL Direct Bilirubin 0.1 (0.0-0.5) mg/dL AST 29 (5-31) U/L ALT 14 (0-31) U/L Alkaline Phosphatase 108 (39-117) U/L Troponin I High Sens 2.8 (<3.5-17.0) ng/L C-Reactive Protein 0.23 (< or = 0.50) mg/dL Total Protein 7.9 (6.5-8.0) g/dL Albumin 4.7 (3.5-5.0) g/dL Lipase 19 (8-78) U/L Urine Color Yellow Urine Appearance Clear Urine pH 7.0 (5.0-9.0) Ur Specific [place] <= 1.005 (1.005-1.025) Urine Protein Negative (Neg-Trace) mg/dL Urine Glucose (UA) Negative (Negative) mg/dL Urine Ketones 40 (Negative) mg/dL Urine Blood Negative (Negative) Urine Nitrite Negative (Negative) Ur Leukocyte Esterase Negative (Negative) Stool Occult Blood NEGATIVE (NEGATIVE) Blood Type A Positive Antibody Screen NEGATIVE Independent Interpretation I performed an independent interpretation of an: CT Scan (colitis) Radiology Impression Discussion of test interpretation with radiology: I have reviewed the radiologist's reading. Independent Historian Clinical information obtained from an independent historian. History obtained from or confirmed by: Spouse External Record Review External record reviewed: Outpatient record Discharge Plan Discharge Clinical Impression: Colitis Elevated WBC count Qualifiers: Leukocytosis type: unspecified Qualified Code(s): D72.829 - Elevated white blood cell count, unspecified Patient Disposition: Admitted As Inpatient Print Language: Luxembourgish
[2024-04-11 13:33] VITALS: BP 149/70; PULSE 71; RESP 18; TEMP 36.6; O2SAT 100; BMI 21.6
--- NOTE | 2024-04-11 13:34 | ECG_ITS ---
Test Reason : WEAKNESS Blood Pressure : / mmHG Vent. Rate : 063 BPM Atrial Rate : 063 BPM P-R Int : 136 ms QRS Dur : 114 ms QT Int : 444 ms P-R-T Axes : 068 -42 084 degrees QTc Int : 454 ms Normal sinus rhythm with sinus arrhythmia Possible Left atrial enlargement Left axis deviation Left bundle branch block Abnormal ECG When compared with ECG of 13-FEB-2024 17:15, No significant change was found Referred By: Latoya Mckeon Electronically Signed By:AMERICA VILLELA MD
--- NOTE | 2024-04-11 13:53 | PC.NURSE ---
Occult blood NEGATIVE.
[2024-04-11] MEDS: Lactated Ringers 1,000 ML 999 ML IV (13:57)
[2024-04-11 14:02] LABS: MANUAL DIFF FLAG NO
[2024-04-11 14:04] LABS: Basophils Absolute Auto 0.1 X10*3/uL (0.0-0.2); Basophils Percent Auto 0.5 % (0-2); Eosinophils Percent Auto 0.1 % (0-4); Hematocrit 43.2 % (37.0-47.0); Hemoglobin 14.9 g/dl (12.0-16.0); Imm Gran Abs Auto 0.06 X10*3/uL (0.00-0.03); Imm Gran Pct Auto 0.4 % (0.0-0.4); Lymphocytes Absolute Auto 3.5 X10*3/uL (1.2-4.9); Lymphocytes Percent Auto 20.5 % (20-40); Mean Corpuscular HGB Conc 34.5 g/dl (31.0-35.0); Mean Corpuscular Hemoglobin 31.5 pg (27.0-33.0); Mean Corpuscular Volume 91.3 fL (80.0-98.0); Mean Platelet Volume 9.8 fL (9.4-12.3); Monocytes Absolute Auto 1.1 X10*3/uL (0.1-1.2); Monocytes Percent Auto 6.5 % (2-11); Neutrophils Absolute Auto 12.4 x10*3/uL (2.0-8.3); OBS Int Ctl Valid YES; OBS1 NEGATIVE (NEGATIVE); Platelet Count 454 X10*3/uL (160-400); Red Blood Count 4.73 X10*6/uL (4.20-5.50); Red Cell Distribution Width 12.8 % (11.0-16.0); White Blood Count 17.1 X10*3/uL (4.8-10.8)
[2024-04-11 14:05] LABS: Appearance Urine Clear; Color Urine Yellow; Glucose Urine UA Negative (Negative); Leukocyte Esterase Urine Negative (Negative); Nitrite Urine Negative (Negative); Specific Gravity - Urine <= 1.005 (1.005-1.025); Urine Blood Negative (Negative); Urine Ketones 40 mg/dL (Negative); Urine Protein Negative (Neg-Trace)
[2024-04-11 14:08] LABS: Prothrombin Time 11.2 SEC (10.9-12.4)
[2024-04-11 14:20] LABS: Alanine Aminotransferase 14 U/L (0-31); Albumin Level 4.7 g/dL (3.5-5.0); Alkaline Phosphatase 108 U/L (39-117); Anion Gap 15 (12-20); Aspartate Amino Transferase 29 U/L (5-31); Bilirubin Direct 0.1 mg/dL (0.0-0.5); Bilirubin Total 0.4 mg/dL (0.0-1.0); Blood Urea Nitrogen 22 mg/dL (9-16); C Reactive Protein 0.23 mg/dL (< or = 0.50); Calcium 9.5 mg/dL (8.4-10.2); Carbon Dioxide 23 mmol/L (22-29); Chloride 107 mmol/L (96-108); Creatinine Clr Calc Pharmacy 59.8; Estimated Glomerular Filt Rate > 60; Glucose Random 102 mg/dL (60-115); Lipase 19 U/L (8-78); Magnesium 1.9 mg/dL (1.6-2.6); Potassium 3.4 mmol/L (3.3-5.1); Sodium 142 mmol/L (135-145); Total Protein 7.9 g/dL (6.5-8.0)
[2024-04-11 14:27] LABS: Troponin-I High Sensitivity 2.8 ng/L (<3.5-17.0)
[2024-04-11 14:42] LABS: Lactic Acid 1.9 mmol/L (0.5-2.0)
[2024-04-11] MEDS: traMADoL HCL 50 MG TABLET PO ×2 (16:39→22:51)
[2024-04-11] MEDS: iohexoL 350 MG/ML 100 ML INFUS..BTL IV (16:40)
[2024-04-11] MEDS: Lactated Ringers 1,000 ML 100 ML IVCONT (17:40)
[2024-04-11] MEDS: metroNIDAZOLE/NS 500 MG/100 ML PIGGYBACK 100 MG IV (17:59)
[2024-04-11 18:17] VITALS: BP 144/67; PULSE 70; RESP 13; TEMP 36.4; O2SAT 100
[2024-04-11] MEDS: carisoprodoL 350 MG TABLET PO (20:16)
[2024-04-11 20:38] LABS: Influenza A PCR NEGATIVE (Negative); Influenza B PCR NEGATIVE (Negative); Resp Syncy Virus RNA Qual PCR NEGATIVE (Negative); SARS COV2 PCR INHOUSE NEGATIVE (Negative)
--- NOTE | 2024-04-11 20:44 | PHA.MEDREC ---
Addendum entered by Luke Koroma [facility] 04/11/24 21:06: med rec reviewed- clonazepam changed to 1 mg daily@1200 Original Note: Pharmacy Consult ? Medication Reconciliation Pharmacy has completed the medication reconciliation. Spoke to patient to confirm med list. Patient confirmed Clonazepam 0.5 mg daily at Noon not BID, Dorzolamide-Timolol 1 gtt in left eye BID not TID. patient states she takes Soma 350 mg every 6 to 8 hours with Tramadol 50 mg , however claims history states Soma 350 mg Q8H and Tramadol Q8H. Left what claim history states. Patient states she needs brand name Soma because she doesn't trust taking the generic. Informed patient we don't carry brand name in house.She would have to bring it from home. Patient states she get Botox 50 units q 3 months , however she doesn't know when her next dose will be because she is waiting on the dr, Last dose was 3 months ago.
--- NOTE | 2024-04-11 20:57 | P.HPHOSP_ITS ---
History of Present Illness Date of Service: 04/11/24 Attending physician on admission: Carrie Tran Chief Complaint: Nausea, vomiting, diarrhea Patient is a 73-year-old female with a past medical history significant for osteoporosis, hemorrhagic ischemic colitis (03/2022), HTN, migraines, left bundle-branch block, and occipital neuralgia, who presented to the ED today with nausea, vomiting and diarrhea x3 days. She reports mostly dry heaving with nausea, no hematemesis or coffee-ground emesis. She has had significant diarrhea which she reports she had most nonstop for 4 hours this morning which has been persistent throughout the day however not as frequent. She is not having a large amount of blood in the stool as previously with episode of hemorrhagic ischemic colitis. She occasionally will have bright red blood separate from the stool mostly with cleaning herself. She denies any recent travel or antibiotics. She also denies a fever but reports chills yesterday. She states that her stool does have a very foul odor. She also has some left lower quadrant pain, she rates this currently a 6/10 but reports that it was worse previously. She describes this as a cramping sensation which is worse with having a bowel movement. Review of Systems 2 Constitutional: Constitutional: Reports chills, Denies fatigue and Denies fever(s) Eyes: Eyes: Denies change in vision ENT: Denies nasal congestion, Denies nasal discharge and Denies sore throat Cardiovascular: Cardiovascular: Denies chest pain, Denies rapid heart rate, Denies lightheadedness and Denies dyspnea Respiratory: Respiratory: Denies chest congestion, Denies cough, Denies dyspnea and Denies wheezing Gastrointestinal: Gastrointestinal: Denies melena, Denies coffee ground emesis, Reports diarrhea, Reports nausea and Reports vomiting Genitourinary: Genitourinary: Denies dysuria and Denies urinary urgency Musculoskeletal: Musculoskeletal: Denies muscle cramps Integumentary/Breasts: Skin/Breast: Denies rash Neurologic: Denies confusion Psychiatric: Psychiatric: Denies confusion Endocrine: Endocrine: Denies fatigue Hematologic/Lymphatic: Hematologic/Lymphatic: Denies easy bleeding and Denies easy bruising Allergic/Immunologic: Allergic/Immunologic: Denies wheezing [facility] Medical History (Updated 04/11/24 @ 21:12 by Torie Lopez PA-C) HTN (hypertension) Migraines Ischemic colitis Occipital neuralgia Ectopic atrial rhythm Incomplete left bundle branch block (LBBB) Functional capacity: independent ambulation Family History (Updated 05/12/23 @ 09:32 by Alvina Norwood) Father Heart problem Mother Heart problem Surgical History (Updated 05/12/23 @ 09:31 by Alvina Norwood) History of back surgery Social History (Updated 05/12/23 @ 09:33 by Alvina Norwood) Alcohol intake: never Patient Tobacco Use Status: Never used Tobacco Substance Use Type: Marijuana Advance Directives: Yes Advance Directives Information Provided: Yes Advance Directives on File: No Do you have a plan to hurt others: No Plan Narrative: no tobacco or etoh, occasional marijuana. Meds Allergies Allergy/AdvReac Type Severity Reaction Status Date / Time ibuprofen [IBUPROFEN] Allergy Unknown ABD PAIN Verified 04/11/24 13:42 Penicillins [PENICILLINS] Allergy Unknown RASH Verified 04/11/24 13:42 hydromorphone [From Dilaudid] AdvReac Unknown Verified 04/11/24 13:42 morphine AdvReac Agitated Verified 04/11/24 13:42 amlodipi AdvReac Intermediate Unknown Uncoded 04/11/24 13:42 Active Medications: Current Medications Acetaminophen (Acetaminophen 325 Mg Tablet) 650 mg PO Q6H PRN PRN Reason: Pain, Mild 1-3,fever,headache Calcium Carbonate (Calcium Carbonate 750 Mg Tab.Chew) 750 mg PO Q4H PRN PRN Reason: Heartburn Lactated Ringer's (Lr) 1,000 mls @ 100 mls/hr IVCONT .Q10H [facility] Last Admin: 04/11/24 17:40 Dose: 100 mls/hr Magnesium Hydroxide (Milk Of Magnesia 30 Ml Oral.Susp) 30 ml PO DAILY PRN PRN Reason: Constipation Melatonin (Melatonin 3 Mg Tablet) 6 mg PO BEDTIME PRN PRN Reason: Insomnia Ondansetron HCl (Ondansetron Hcl 4 Mg/2 Ml Vial) 4 mg IVPUSH Q8H PRN PRN Reason: Nausea and Vomiting Sodium Chloride (0.9 % Sodium Chloride Flush 3 Ml Syringe) 3 ml IVFLUSH QSHIFT [facility] Home Medications ?Medication ?Instructions ?Recorded ?Confirmed ?Last Taken ?Type diltiazem HCl 60 mg 60 mg PO Q12H 05/12/23 04/11/24 Unknown History capsule,extended release 12 hr ketorolac 0.5 % eye drops 1 drp ophthalmic-Left DAILY 05/12/23 04/11/24 Unknown History latanoprost 0.005 % eye drops 1 drp ophthalmic-Left BID 05/12/23 04/11/24 Unknown History onabotulinumtoxinA 100 unit 50 unit intradermal [id number] 05/12/23 04/11/24 Unknown History solution for injection (Botox) tramadol 50 mg tablet 50 mg PO TID 05/12/23 04/11/24 Unknown History carisoprodol 350 mg tablet (Soma) 350 mg PO TID PRN Muscle Spasm 04/11/24 04/11/24 Unknown History clonazepam 1 mg tablet 1 mg PO DAILY@1200 04/11/24 04/11/24 Unknown History dorzolamide 22.3 mg-timolol 6.8 1 drp ophthalmic-Left BID 04/11/24 04/11/24 Unknown History mg/mL eye drops netarsudil 0.02 % eye drops 1 drp ophthalmic-Left BEDTIME 04/11/24 04/11/24 Unknown History (Rhopressa) Physical Exam 2 Vital Signs and Narrative: Vital Signs: Last Vital Signs Temp 97.5 F 04/11/24 18:17 Pulse 70 04/11/24 18:17 Resp 13 04/11/24 18:17 BP 144/67 H 04/11/24 18:17 Pulse Ox 100 04/11/24 18:17 O2 Del Method Room Air 04/11/24 18:17 BMI result Body Mass Index 21.6 General: AOx3, no acute distress Resp: CTA bilaterally CVS: S1, S2, RRR GI: +BS, tender lower abd, worse in LLQ, no distention Skin: Warm, dry Neuro: Cranial nerves II-XII grossly intact bilaterally. Motor grossly intact bilaterally Extremities: No LE edema Psych: Appropriate affect Const: General: No confusion Orientation/consciousness: No confusion Neuro: General: No confusion Results Labs 04/11/24 13:55 04/11/24 13:55 Labs: Laboratory Results - last 24 hr 04/11/24 04/11/24 04/11/24 13:52 13:55 14:14 MCV 91.3 MCH 31.5 MCHC 34.5 RDW 12.8 Plt Count 454 H MPV 9.8 Immature Gran % (Auto) 0.4 Neut % (Auto) 72.0 Lymph % (Auto) 20.5 [place] % (Auto) 6.5 Eos % (Auto) 0.1 Baso % (Auto) 0.5 Lymph # (Auto) 3.5 [place] # (Auto) 1.1 Eos # (Auto) 0.0 Baso # (Auto) 0.1 Abs Immat Gran (auto) 0.06 H Absolute Neuts (auto) 12.4 H Absolute Nucleated RBC 0.000 Nucleated RBC % (auto) 0.0 Hold Purple Top SEE NOTE PT 11.2 INR 1.0 Hold Blue Top SEE NOTE Anion Gap 15 Estim Creat Clear Calc 59.8 Estimated GFR > 60 Random Glucose 102 Lactic Acid 1.9 Calcium 9.5 Magnesium 1.9 Total Bilirubin 0.4 Direct Bilirubin 0.1 AST 29 ALT 14 Alkaline Phosphatase 108 Troponin I High Sens 2.8 C-Reactive Protein 0.23 Total Protein 7.9 Albumin 4.7 Lipase 19 Urine Color Yellow Urine Appearance Clear Urine pH 7.0 Ur Specific [place] <= 1.005 Urine Protein Negative Urine Glucose (UA) Negative Urine Ketones 40 Urine Blood Negative Urine Nitrite Negative Ur Leukocyte Esterase Negative Stool Occult Blood NEGATIVE Influenza Type A (PCR) NEGATIVE Influenza Type B (PCR) NEGATIVE RSV RNA Qual (PCR) NEGATIVE SARS-CoV-2 RNA (RT-PCR) NEGATIVE Blood Type A Positive Antibody Screen NEGATIVE Imaging Radiologist's Impressions: Impressions Abdomen/Pelvis CT 04/11/24 16:12 IMPRESSION: Diffuse mural thickening involving transverse, descending and sigmoid colon suggestive of colitis likely inflammatory or infectious etiology. No pericolic fat stranding, bowel obstruction, free air or free fluid. Fleischner guidelines were followed. Electronically signed by: Chalino Fernandez MD 04/11/2024 04:56 PM [facility] Assessment and Plan (1) Colitis: Status: Acute (2) Elevated WBC count: Qualifiers: Leukocytosis type: unspecified Qualified Code(s): D72.829 - Elevated white blood cell count, unspecified Status: Acute Plan Patient is a 73-year-old female with a past medical history significant for osteoporosis, hemorrhagic ischemic colitis (03/2022), HTN, migraines, left bundle-branch block, and occipital neuralgia, who presented to the ED today with nausea, vomiting and diarrhea x3 days. Abdominopelvic CT with diffuse mural thickening involving transverse, descending and sigmoid colon suggestive of colitis likely inflammatory or infectious etiology. Colitis, infectious versus inflammatory - WBC 17.1 - likely reactive, lactic acid normal, vital signs normal, blood cultures x2 pending, no sepsis - abdominopelvic CT with diffuse mural thickening involving transverse, descending and sigmoid colon suggestive of colitis likely inflammatory or infectious etiology - electrolytes normal - UA negative - fecal occult blood test negative - patient reluctant to take antibiotics as she receives Botox for occipital neuralgia and reports that she is unable to use this if on antibiotics, started on Flagyl in ED, hold further abx as colitis is likely viral versus inflammatory - GI panel and C diff - GI consult - clear liquid diet, advanced to regular diet as tolerated - LR 100ml/hr - monitor CBC and BMP HTN - continue diltiazem Full code VTE prophylaxis: Pneumoboots, contraindicated due rectal bleeding and history of hemorrhagic colitis Patient with colitis, infectious versus inflammatory, unable to tolerate p.o., requiring admission for at least 2 midnight stay for IV fluids and monitoring. Quality Stroke Does the patient have a stroke diagnosis?: No VTE Prior VTE?: No VTE Risk Level:: Medical - moderate - high VTE Device Contraindication: N/A - Device Ordered VTE Drug Contraindication: Treatment Not Indicated
[2024-04-11 21:00] VITALS: BP 144/67; PULSE 70; RESP 13; TEMP 36.4
[2024-04-11 21:18] LABS: Procalcitonin 0.03 ng/mL
[2024-04-11] MEDS: 0.9 % Sodium Chloride Flush 3 ML SYRINGE IVFLUSH (22:06)
[2024-04-11] MEDS: ondansetron HCL 4 MG/2 ML VIAL IVPUSH (22:06)
--- NOTE | 2024-04-11 22:31 | PC.NURSE ---
Late entry by this RN. Pt refused IV Tylenol to this RN & Dr. Mckeon stating I take Soma & Tramadol 3 times a day since my surgery in 1982. Nothing else really works, and Tylenol isn't going to touch my pain. I'm allergic to a lot of medications too. Documented refusal in EMAR. Hospitalist Dr. Tran also aware. Patient is otherwise pleasant & cooperative, but intermittently anxious. Patient was briefly tearful voicing concerns about her newly blind and his ability to care for himself independently at home. States that her niece brought him home earlier today, but she isn't willing to travel to [place] from [place] to check up on him. Patient stated my family doesn't feel that my and I are worth the drive to check on us or care for us . States that she has spoken to professionals about similar statements in the past, but they never do anything to help . Pt suffers from chronic neck pain, back pain, and spasms and has had multiple spinal procedures. Patient is able to ambulate independently with slow steady gait. LR continues to infuse as ordered. Plan to move patient to [facility], awaiting call back from [facility] RN Tracy. Call wells within reach. Care ongoing by this RN.
[2024-04-11 23:56] VITALS: BP 158/82; PULSE 69; RESP 16; TEMP 37; O2SAT 99
[2024-04-12 04:00] VITALS: BP 160/72; PULSE 75; RESP 16; TEMP 37.1; O2SAT 99
[2024-04-12] MEDS: Lactated Ringers 1,000 ML 100 ML IVCONT (04:29)
[2024-04-12 05:25] LABS: MANUAL DIFF FLAG NO
[2024-04-12 05:27] LABS: Basophils Absolute Auto 0.1 X10*3/uL (0.0-0.2); Basophils Percent Auto 0.5 % (0-2); Eosinophils Absolute Auto 0.1 X10*3/uL (0.0-0.4); Eosinophils Percent Auto 0.6 % (0-4); Hematocrit 35.8 % (37.0-47.0); Hemoglobin 12.3 g/dl (12.0-16.0); Imm Gran Abs Auto 0.04 X10*3/uL (0.00-0.03); Imm Gran Pct Auto 0.3 % (0.0-0.4); Lymphocytes Absolute Auto 3.7 X10*3/uL (1.2-4.9); Lymphocytes Percent Auto 30.8 % (20-40); Mean Corpuscular HGB Conc 34.4 g/dl (31.0-35.0); Mean Corpuscular Hemoglobin 31.7 pg (27.0-33.0); Mean Corpuscular Volume 92.3 fL (80.0-98.0); Mean Platelet Volume 10.1 fL (9.4-12.3); NRBC Pct Auto 0.2 /100WBC (0.0-0.2); Neutrophils Absolute Auto 7.3 x10*3/uL (2.0-8.3); Neutrophils Percent Auto 59.8 % (45-73); Platelet Count 367 X10*3/uL (160-400); Red Blood Count 3.88 X10*6/uL (4.20-5.50); White Blood Count 12.2 X10*3/uL (4.8-10.8)
[2024-04-12] MEDS: ondansetron HCL 4 MG/2 ML VIAL IVPUSH (05:40)
[2024-04-12] MEDS: traMADoL HCL 50 MG TABLET PO ×2 (05:43→15:45)
[2024-04-12 05:47] LABS: Anion Gap 13 (12-20); Blood Urea Nitrogen 13 mg/dL (9-16); Calcium 8.6 mg/dL (8.4-10.2); Carbon Dioxide 24 mmol/L (22-29); Chloride 110 mmol/L (96-108); Estimated Glomerular Filt Rate > 60; Glucose Random 82 mg/dL (60-115); Potassium 3.6 mmol/L (3.3-5.1); Sodium 143 mmol/L (135-145)
--- NOTE | 2024-04-12 05:56 | PC.NURSE ---
Pt AOx4, able to make needs known, ambulates to bathroom, utilizes call wells appropriately. Pt had a small bit of blood when she used bathroom, stated it came from her rectum. Pt teary, crying. She is upset thinking she may have a repeat of something she had prior, she is scared. 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 She stated they have applied for assistance but were told they make too much money. This RN recommended she speak to social work/case management while she is here to see what resources may be available to them. Pt asked for a phone to call her , ED brought over phone, pt on phone w/ as of this writing. Pt also stated her pain pill regime and said she was told in the ED that the MD would order her pills. As of this note, this has not happened. [facility] hospitalist Dr. Tran for pain medication, see MAR for administration (written for one time dose). She is waiting for a bed on med surg.
[2024-04-12 07:47] VITALS: BP 143/90; PULSE 110; RESP 18; TEMP 37.3; O2SAT 96
--- NOTE | 2024-04-12 07:55 | P.PNIM_ITS ---
Subjective Subjective Date of Service: 04/12/24 Physical Exam 2 Vital Signs: Vital Signs: Last Vital Signs Temp 99.2 F 04/12/24 07:47 Pulse 110 H 04/12/24 07:47 Resp 18 04/12/24 07:47 BP 143/90 H 04/12/24 07:47 Pulse Ox 96 04/12/24 07:47 O2 Del Method Room Air 04/12/24 07:47 BMI result Body Mass Index 21.6 Objective Data Active Medications Acetaminophen (Acetaminophen 325 Mg Tablet) 650 mg PO Q6H PRN PRN Reason: Pain, Mild 1-3,fever,headache Calcium Carbonate (Calcium Carbonate 750 Mg Tab.Chew) 750 mg PO Q4H PRN PRN Reason: Heartburn Lactated Ringer's (Lr) 1,000 mls @ 100 mls/hr IVCONT .Q10H [facility] Last Admin: 04/12/24 04:29 Dose: 100 mls/hr Documented By: ROCCO Magnesium Hydroxide (Milk Of Magnesia 30 Ml Oral.Susp) 30 ml PO DAILY PRN PRN Reason: Constipation Melatonin (Melatonin 3 Mg Tablet) 6 mg PO BEDTIME PRN PRN Reason: Insomnia Ondansetron HCl (Ondansetron Hcl 4 Mg/2 Ml Vial) 4 mg IVPUSH Q8H PRN PRN Reason: Nausea and Vomiting Last Admin: 04/12/24 05:40 Dose: 4 mg Documented By: ROCCO Sodium Chloride (0.9 % Sodium Chloride Flush 3 Ml Syringe) 3 ml IVFLUSH QSHIFT [facility] Last Admin: 04/12/24 07:12 Dose: Not Given Documented By: MENA Non-Admin Reason: IV Running Labs 04/12/24 04:21 04/12/24 04:21 Labs: Laboratory Results - last 24 hr 04/11/24 04/11/24 04/11/24 13:52 13:55 14:14 MCV 91.3 MCH 31.5 MCHC 34.5 RDW 12.8 Plt Count 454 H MPV 9.8 Immature Gran % (Auto) 0.4 Neut % (Auto) 72.0 Lymph % (Auto) 20.5 Stone % (Auto) 6.5 Eos % (Auto) 0.1 Baso % (Auto) 0.5 Lymph # (Auto) 3.5 Stone # (Auto) 1.1 Eos # (Auto) 0.0 Baso # (Auto) 0.1 Abs Immat Gran (auto) 0.06 H Absolute Neuts (auto) 12.4 H Absolute Nucleated RBC 0.000 Nucleated RBC % (auto) 0.0 Hold Purple Top SEE NOTE PT 11.2 INR 1.0 Hold Blue Top SEE NOTE Anion Gap 15 Estim Creat Clear Calc 59.8 Estimated GFR > 60 Random Glucose 102 Lactic Acid 1.9 Calcium 9.5 Magnesium 1.9 Total Bilirubin 0.4 Direct Bilirubin 0.1 AST 29 ALT 14 Alkaline Phosphatase 108 Troponin I High Sens 2.8 C-Reactive Protein 0.23 Total Protein 7.9 Albumin 4.7 Lipase 19 Procalcitonin 0.03 Urine Color Yellow Urine Appearance Clear Urine pH 7.0 Ur Specific [place] <= 1.005 Urine Protein Negative Urine Glucose (UA) Negative Urine Ketones 40 Urine Blood Negative Urine Nitrite Negative Ur Leukocyte Esterase Negative Stool Occult Blood NEGATIVE Influenza Type A (PCR) NEGATIVE Influenza Type B (PCR) NEGATIVE RSV RNA Qual (PCR) NEGATIVE SARS-CoV-2 RNA (RT-PCR) NEGATIVE Blood Type A Positive Antibody Screen NEGATIVE 04/12/24 04:21 MCV 92.3 MCH 31.7 MCHC 34.4 RDW 13.0 Plt Count 367 MPV 10.1 Immature Gran % (Auto) 0.3 Neut % (Auto) 59.8 Lymph % (Auto) 30.8 Stone % (Auto) 8.0 Eos % (Auto) 0.6 Baso % (Auto) 0.5 Lymph # (Auto) 3.7 Stone # (Auto) 1.0 Eos # (Auto) 0.1 Baso # (Auto) 0.1 Abs Immat Gran (auto) 0.04 H Absolute Neuts (auto) 7.3 Absolute Nucleated RBC 0.020 H Nucleated RBC % (auto) 0.2 Hold Purple Top PT INR Hold Blue Top Anion Gap 13 Estim Creat Clear Calc 63.0 Estimated GFR > 60 Random Glucose 82 Lactic Acid Calcium 8.6 D Magnesium Total Bilirubin Direct Bilirubin AST ALT Alkaline Phosphatase Troponin I High Sens C-Reactive Protein Total Protein Albumin Lipase Procalcitonin Urine Color Urine Appearance Urine pH Ur Specific [place] Urine Protein Urine Glucose (UA) Urine Ketones Urine Blood Urine Nitrite Ur Leukocyte Esterase Stool Occult Blood Influenza Type A (PCR) Influenza Type B (PCR) RSV RNA Qual (PCR) SARS-CoV-2 RNA (RT-PCR) Blood Type Antibody Screen Assessment and Plan Plan 73-year-old female with a past medical history significant for osteoporosis, hemorrhagic ischemic colitis (03/2022), HTN, migraines, left bundle-branch block, and occipital neuralgia, who presented to the ED today with nausea, vomiting and diarrhea x3 days. Abdominopelvic CT with diffuse mural thickening involving transverse, descending and sigmoid colon suggestive of colitis likely inflammatory or infectious etiology. Colitis, infectious versus inflammatory - WBC 17.1 - likely reactive, lactic acid normal, vital signs normal, blood cultures x2 pending, no sepsis - abdominopelvic CT with diffuse mural thickening involving transverse, descending and sigmoid colon suggestive of colitis likely inflammatory or infectious etiology - electrolytes normal - UA negative - fecal occult blood test negative - patient reluctant to take antibiotics as she receives Botox for occipital neuralgia and reports that she is unable to use this if on antibiotics, started on Flagyl in ED, hold further abx as colitis is likely viral versus inflammatory - GI panel and C diff - GI consult - clear liquid diet, advanced to regular diet as tolerated - LR 100ml/hr - WBC improved to 12.2 , GI panel and C diff on collected monitor CBC and BMP HTN - continue diltiazem Full code VTE prophylaxis: Pneumoboots, contraindicated due rectal bleeding and history of hemorrhagic colitis Patient with colitis, infectious versus inflammatory, unable to tolerate p.o., requiring admission for at least 2 midnight stay for IV fluids and monitoring. Quality Stroke Does the patient have a stroke diagnosis?: No VTE Prior VTE?: No VTE Risk Level:: Medical - moderate - high VTE Device Contraindication: N/A - Device Ordered VTE Drug Contraindication: Treatment Not Indicated
[2024-04-12] MEDS: carisoprodoL 350 MG TABLET PO (08:59)
[2024-04-12] MEDS: Acetaminophen 325 MG TABLET 650 MG PO (08:59)
[2024-04-12] MEDS: Ketorolac Tromethamine 0.5% Op 5 ML DROPS 1 DROP EYE-LEFT (09:01)
[2024-04-12] MEDS: Dorzolamide/Timolo 2.23%/0.68% 10 ML DRBTL 1 DROP EYE-LEFT (09:01)
[2024-04-12] MEDS: Latanoprost 0.005 % Ophth Sol 2.5 ML DROPS 1 DROP EYE-LEFT (09:01)
--- NOTE | 2024-04-12 10:01 | P.CNGI_ITS ---
History of Present Illness Data of Consult Service Date: 04/12/24 Requesting physician: Carrie Tran Primary Care Provider: Javier Stanford MD HPI Reason for consult: Colitis 04/11/[address] SCAN SHOWED: IMPRESSION: Diffuse mural thickening involving transverse, descending and sigmoid colon suggestive of colitis likely inflammatory or infectious etiology. No pericolic fat stranding, bowel obstruction, free air or free fluid. [facility] Past Medical History Medical History (Updated 04/11/24 @ 21:12 by Torie Lopez PA-C) HTN (hypertension) Migraines Ischemic colitis Occipital neuralgia Ectopic atrial rhythm Incomplete left bundle branch block (LBBB) Family History Family History (Updated 05/12/23 @ 09:32 by Alvina Norwood) Father Heart problem Mother Heart problem Surgical History Surgical History (Updated 05/12/23 @ 09:31 by Alvina Norwood) History of back surgery Social History Social History (Updated 05/12/23 @ 09:33 by Alvina Norwood) Alcohol intake: never Patient Tobacco Use Status: Never used Tobacco Substance Use Type: Marijuana Advance Directives: Yes Advance Directives Information Provided: Yes Advance Directives on File: No Do you have a plan to hurt others: No Plan Meds Allergies Allergy/AdvReac Type Severity Reaction Status Date / Time ibuprofen [IBUPROFEN] Allergy Unknown ABD PAIN Verified 04/11/24 13:42 Penicillins [PENICILLINS] Allergy Unknown RASH Verified 04/11/24 13:42 hydromorphone [From Dilaudid] AdvReac Unknown Verified 04/11/24 13:42 morphine AdvReac Agitated Verified 04/11/24 13:42 amlodipi AdvReac Intermediate Unknown Uncoded 04/11/24 13:42 Active Medications: Current Medications Acetaminophen (Acetaminophen 325 Mg Tablet) 650 mg PO Q6H PRN PRN Reason: Pain, Mild 1-3,fever,headache Last Admin: 04/12/24 08:59 Dose: 650 mg Calcium Carbonate (Calcium Carbonate 750 Mg Tab.Chew) 750 mg PO Q4H PRN PRN Reason: Heartburn Carisoprodol (Carisoprodol 350 Mg Tablet) 350 mg PO TID PRN PRN Reason: Muscle Spasm Last Admin: 04/12/24 08:59 Dose: 350 mg Clonazepam (Clonazepam 1 Mg Tablet) 1 mg PO DAILY@1200 ELIF Diltiazem HCl (Diltiazem Hcl Sr 60 Mg Cap.Er.12h) 60 mg PO BID [facility]; Protocol Dorzolamide/Timolol (Dorzolamide/Timolo 2.23%/0.68% 10 Ml Drbtl) 1 drop EYE- LEFT BID [facility] Last Admin: 04/12/24 09:01 Dose: 1 drop Lactated Ringer's (Lr) 1,000 mls @ 100 mls/hr IVCONT .Q10H [facility] Last Admin: 04/12/24 04:29 Dose: 100 mls/hr Ketorolac Tromethamine (Ketorolac Tromethamine 0.5% Op 5 Ml Drops) 1 drop EYE- LEFT DAILY [facility] Last Admin: 04/12/24 09:01 Dose: 1 drop Latanoprost (Latanoprost 0.005 % Ophth Zelda 2.5 Ml Drops) 1 drop EYE-LEFT BID [facility] Last Admin: 04/12/24 09:01 Dose: 1 drop Magnesium Hydroxide (Milk Of Magnesia 30 Ml Oral.Susp) 30 ml PO DAILY PRN PRN Reason: Constipation Melatonin (Melatonin 3 Mg Tablet) 6 mg PO BEDTIME PRN PRN Reason: Insomnia Non-Formulary Medication (Netarsudil [Rhopressa]) 1 drop EYE-LEFT BEDTIME [facility] Ondansetron HCl (Ondansetron Hcl 4 Mg/2 Ml Vial) 4 mg IVPUSH Q8H PRN PRN Reason: Nausea and Vomiting Last Admin: 04/12/24 05:40 Dose: 4 mg Sodium Chloride (0.9 % Sodium Chloride Flush 3 Ml Syringe) 3 ml IVFLUSH QSHIFT [facility] Last Admin: 04/12/24 07:12 Dose: Not Given Tramadol HCl (Tramadol Hcl 50 Mg Tablet) 50 mg PO TID [facility] Last Admin: 04/12/24 08:54 Dose: Not Given Home Medications ?Medication ?Instructions ?Recorded ?Confirmed ?Last Taken ?Type diltiazem HCl 60 mg 60 mg PO Q12H 05/12/23 04/11/24 Unknown History capsule,extended release 12 hr ketorolac 0.5 % eye drops 1 drp ophthalmic-Left DAILY 05/12/23 04/11/24 Unknown History latanoprost 0.005 % eye drops 1 drp ophthalmic-Left BID 05/12/23 04/11/24 Unknown History onabotulinumtoxinA 100 unit 50 unit intradermal [id number] 05/12/23 04/11/24 Unknown History solution for injection (Botox) tramadol 50 mg tablet 50 mg PO TID 05/12/23 04/11/24 Unknown History carisoprodol 350 mg tablet (Soma) 350 mg PO TID PRN Muscle Spasm 04/11/24 04/11/24 Unknown History clonazepam 1 mg tablet 1 mg PO DAILY@1200 04/11/24 04/11/24 Unknown History dorzolamide 22.3 mg-timolol 6.8 1 drp ophthalmic-Left BID 04/11/24 04/11/24 Unknown History mg/mL eye drops netarsudil 0.02 % eye drops 1 drp ophthalmic-Left BEDTIME 04/11/24 04/11/24 Unknown History (Rhopressa) Physical Exam 2 Vital Signs: Vital Signs: Last Vital Signs Temp 99.2 F 04/12/24 07:47 Pulse 110 H 04/12/24 07:47 Resp 18 04/12/24 07:47 BP 143/90 H 04/12/24 07:47 Pulse Ox 96 04/12/24 07:47 O2 Del Method Room Air 04/12/24 07:47 BMI result Body Mass Index 21.6 Results Labs 04/12/24 04:21 04/12/24 04:21 Labs: Short CBC 04/11/24 04/12/24 Range/Units 13:55 04:21 WBC 17.1 H 12.2 H (4.8-10.8) X10*3/uL Hgb 14.9 12.3 (12.0-16.0) g/dl Hct 43.2 35.8 L (37.0-47.0) % Plt Count 454 H 367 (160-400) X10*3/uL BMP 04/11/24 04/12/24 13:55 04:21 Sodium 142 143 Potassium 3.4 3.6 Chloride 107 110 H Carbon Dioxide 23 24 BUN 22 H 13 Creatinine 0.79 0.75 Calcium 9.5 8.6 D Liver Function 04/11/24 Range/Units 13:55 Total Bilirubin 0.4 (0.0-1.0) mg/dL Direct Bilirubin 0.1 (0.0-0.5) mg/dL AST 29 (5-31) U/L ALT 14 (0-31) U/L Alkaline Phosphatase 108 (39-117) U/L Albumin 4.7 (3.5-5.0) g/dL Urine 04/11/24 Range/Units 13:52 Urine Color Yellow Urine Appearance Clear Urine pH 7.0 (5.0-9.0) Ur Specific [place] <= 1.005 (1.005-1.025) Urine Protein Negative (Neg-Trace) mg/dL Urine Glucose (UA) Negative (Negative) mg/dL Procedures Date of Service Date of Service: 04/12/24
[2024-04-12] MEDS: dilTIAZem HCL SR 60 MG CAP.ER.12H PO (11:02)
[2024-04-12 11:51] VITALS: BP 178/97; PULSE 83; RESP 16; TEMP 37.2; O2SAT 98
[2024-04-12] MEDS: clonazePAM 1 MG TABLET PO (12:00)
--- NOTE | 2024-04-12 14:32 | PC.NURSE ---
pt tolerated clear liquid well. no issued. Dr. Benitez notified. Per KARLY HARRIS LR. No need for next liter of fluids.
--- NOTE | 2024-04-12 14:36 | PC.NURSE ---
LR @ 100/hr order stopped per verbal order from Dr Benitez
[2024-04-12] MEDS: 0.9 % Sodium Chloride Flush 3 ML SYRINGE IVFLUSH (15:45)
[2024-04-12 15:48] VITALS: BP 147/78; PULSE 69; RESP 18; TEMP 37.2; O2SAT 99
--- NOTE | 2024-04-12 15:55 | PM.DS ---
DS: Providers Provider Date of Service: 04/12/24 Date of admission: 04/11/24 20:29 Date of discharge: 04/12/24 Primary care physician: Javier Stanford MD Consults: 04/11/24 20:28 Consult to Gastroenterology Routine Consulting Provider: Ismael Cortes Reason for consultation: colitis DS: Diagnosis Discharge Diagnosis (1) Colitis: Status: Acute (2) Elevated WBC count: Status: Acute DS: Summary Hospital Course Hospital Course: History of presenting illness: Date of Service: 04/11/24 Attending physician on admission: Carrie Tran Chief Complaint: Nausea, vomiting, diarrhea Patient is a 73-year-old female with a past medical history significant for osteoporosis, hemorrhagic ischemic colitis (03/2022), HTN, migraines, left bundle-branch block, and occipital neuralgia, who presented to the ED today with nausea, vomiting and diarrhea x3 days. She reports mostly dry heaving with nausea, no hematemesis or coffee-ground emesis. She has had significant diarrhea which she reports she had most nonstop for 4 hours this morning which has been persistent throughout the day however not as frequent. She is not having a large amount of blood in the stool as previously with episode of hemorrhagic ischemic colitis. She occasionally will have bright red blood separate from the stool mostly with cleaning herself. She denies any recent travel or antibiotics. She also denies a fever but reports chills yesterday. She states that her stool does have a very foul odor. She also has some left lower quadrant pain, she rates this currently a 6/10 but reports that it was worse previously. She describes this as a cramping sensation which is worse with having a bowel movement. Hospital course: Acute gastroenteritis 73-year-old female with a past medical history significant for osteoporosis, hemorrhagic ischemic colitis (03/2022), HTN, migraines, left bundle-branch block, and occipital neuralgia, presented to the ED with nausea, vomiting and diarrhea x3 days, Abdomino pelvic CT showed diffuse mural thickening involving transverse, descending and sigmoid colon suggestive of colitis likely inflammatory or infectious etiology, patient admitted to medical floor with a diagnosis of acute gastroenteritis, treated with IV fluids, IV Flagyl , diet was gradually advanced , all symptoms resolved, WBC trended down, lactic acid normal , blood culture showed no growth since patient is asymptomatic tolerating diet she has been discharged home and recommended to follow bland diet for few days returned to check with recurrent symptoms. HTN - continue diltiazem Time Attestation Discharge Coordination Time (in mins): 38 Quality: Safe Use of Opioids Does Pt have an Active Cancer Diagnosis on the Problem List?: No Quality: Stroke Does the patient have a stroke diagnosis?: No Physical Exam Vital Signs: Vital Signs: Last Vital Signs Temp 99.0 F 04/12/24 15:48 Pulse 69 04/12/24 15:48 Resp 18 04/12/24 15:48 BP 147/78 H 04/12/24 15:48 Pulse Ox 99 04/12/24 15:48 O2 Del Method Room Air 04/12/24 15:48 BMI result Body Mass Index 21.6 Const: Other: General: AOx3, no acute distress Anicteric sclera Resp: CTA bilaterally CVS: S1, S2, RRR GI: +BS, nontender, bowel sounds audible, no distention Skin: Warm, dry Neuro: Cranial nerves II-XII grossly intact bilaterally. Motor grossly intact bilaterally Extremities: No LE edema Psych: Appropriate affect DS: Data Data Completed and Pending Labs on day of discharge: Laboratory Results - last 24 hr 04/11/24 04/11/24 04/12/24 13:55 14:14 04:21 WBC 12.2 H RBC 3.88 L Hgb 12.3 Hct 35.8 L MCV 92.3 MCH 31.7 MCHC 34.4 RDW 13.0 Plt Count 367 MPV 10.1 Immature Gran % (Auto) 0.3 Neut % (Auto) 59.8 Lymph % (Auto) 30.8 [place] % (Auto) 8.0 Eos % (Auto) 0.6 Baso % (Auto) 0.5 Lymph # (Auto) 3.7 [place] # (Auto) 1.0 Eos # (Auto) 0.1 Baso # (Auto) 0.1 Abs Immat Gran (auto) 0.04 H Absolute Neuts (auto) 7.3 Absolute Nucleated RBC 0.020 H Nucleated RBC % (auto) 0.2 Sodium 143 Potassium 3.6 Chloride 110 H Carbon Dioxide 24 Anion Gap 13 BUN 13 Creatinine 0.75 Estim Creat Clear Calc 63.0 Estimated GFR > 60 Random Glucose 82 Calcium 8.6 D Procalcitonin 0.03 Influenza Type A (PCR) NEGATIVE Influenza Type B (PCR) NEGATIVE RSV RNA Qual (PCR) NEGATIVE SARS-CoV-2 RNA (RT-PCR) NEGATIVE Discharge Plan Discharge Anticipated Discharge Date/Time: 04/12/24 15:52 Patient Disposition: Home, Self-Care Discharge Diagnosis: Acute gastroenteritis Referrals: Javier Stanford MD [Primary Care Provider] - 1 Week Discharge Medications: Continued carisoprodol [Soma] 350 mg tablet 350 mg PO TID PRN (Reason: Muscle Spasm) dorzolamide-timolol 22.3-6.8 mg/mL drops 1 drp ophthalmic-Left BID Rhopressa 0.02 % drops 1 drp ophthalmic-Left BEDTIME clonazepam 1 mg tablet 1 mg PO DAILY@1200 tramadol 50 mg tablet 50 mg PO TID diltiazem HCl 60 mg capsule,extended release 12 hr 60 mg PO Q12H latanoprost 0.005 % drops 1 drp ophthalmic-Left BID ketorolac 0.5 % drops 1 drp ophthalmic-Left DAILY Botox 100 unit recon soln 50 unit intradermal [id number] Discharge Orders: Discharge Order (Routine); Ordered 04/12/24 Ordered By: Austin Benitez Diet: Loyal diet Activity on Discharge: As tolerated Stand Alone Forms: Patient Portal Discharge page Print Language: Italian Care Plan Goals: Acute gastroenteritis resolved Follow bland diet /take bananas/pudding/rice/bread avoid fried foods and salads Returned to check with recurrent symptoms of abdominal pain nausea vomiting or diarrhea Health Concerns: Continue all home medications Plan of Treatment: Outpatient follow-up with primary care physician call for appointment Assessment: as above Discharge Date/Time: 04/12/24 15:58
[2024-04-12 16:06] VITALS: BP 147/78; PULSE 69; RESP 18; TEMP 37.2; O2SAT 99
== END 2024-04-12 15:58 | disposition home or self-care (01) | DRG 392 ==
LOC: HO.ED 17:15 → HO.EDOVER 20:37 → HO.S3 04-12 15:32 → HO.EDOVER 04-12 15:46
PROVIDERS: Admitting Provider Student in an Organized Health Care Education/Training Program; Emergency Provider Emergency Medicine; PCP Internal Medicine; Visit Provider Hospitalist
DX: A09 Infectious gastroenteritis and colitis, unspecified (principal); G43.909 Migraine, unspecified, not intractable, without status migrainosus; I10 Essential (primary) hypertension; M81.0 Age-related osteoporosis without current pathological fracture; Z20.822 Contact with and (suspected) exposure to COVID-19; Z79.899 Other long term (current) drug therapy
CPT/HCPCS: 0241U; 36415; 74177; 80048; 80076; 81003; 82272; 83605; 83690; 83735; 84145; 84484; 85025; 85610; 86140; 86850; 86900; 86901; 87040; 93005; 99285; J1836; J2405; J7120; Q9967

== ENCOUNTER → 2024-04-11 13:33 | Outpatient (BNV) | payer MEDICARE, SELFPAY | PROVIDERS: Emergency Provider Emergency Medicine; PCP Internal Medicine; Visit Provider Radiology Diagnostic Radiology | DX: R10.30 Lower abdominal pain, unspecified (principal) | CPT/HCPCS: 74177 ==

== ENCOUNTER → 2024-04-11 13:34 | Outpatient (BNV) | payer MEDICARE, SELFPAY | PROVIDERS: Admitting Provider Student in an Organized Health Care Education/Training Program; Emergency Provider Emergency Medicine; PCP Internal Medicine; Visit Provider Internal Medicine Cardiovascular Disease | DX: R53.1 Weakness (principal); I44.7 Left bundle-branch block, unspecified; R94.31 Abnormal electrocardiogram [ECG] [EKG] | CPT/HCPCS: 93010 ==

== ENCOUNTER → 2024-04-11 20:29 | Outpatient (BNV) | payer MEDICARE, SELFPAY | PROVIDERS: Admitting Provider Student in an Organized Health Care Education/Training Program; Emergency Provider Emergency Medicine; PCP Internal Medicine; Visit Provider Physician Assistant | DX: K52.9 Noninfective gastroenteritis and colitis, unspecified (principal); D72.829 Elevated white blood cell count, unspecified | CPT/HCPCS: 99222; 99239 ==

== ENCOUNTER 2024-06-30 07:39 | Emergency (ER) | payer MEDICARE, SELFPAY ==
--- NOTE | ~2024-06-30 | CT_ITS ---
EXAMINATION: CT ABDOMEN PELVIS WITH IV CONTRAST HISTORY: lower abd pain/ tenderness hx of colitis COMPARISON: Comparison is made with the prior examination dated 04/11/2024. TECHNIQUE: CT scan of the abdomen and pelvis was performed following administration of 85 mL Omnipaque 350 using standard departmental protocol. Coronal and sagittal reformatted images were generated and reviewed. Oral contrast material was not administered at the request of the referring physician. This CT exam was performed with one or more of the following dose reduction techniques: automated exposure control, adjustment of the mA and/or kV according to patient size, use of iterative reconstruction technique. DLP: 407 mGy-cm FINDINGS: LOWER CHEST: Again seen is scarring of both lung bases.. There is no pleural effusion. CARDIOVASCULATURE: The heart is normal in size. There is no pericardial effusion. LIVER: The liver is normal in size and contour. Again seen is a 10 mm hypodensity is again noted at the posterior aspect of the hepatic dome consistent with a cyst. The hepatic and portal veins are patent. GALLBLADDER / BILE DUCTS: The gallbladder is unremarkable. There is no intra or extrahepatic biliary ductal dilatation. SPLEEN: The spleen is normal in size. No focal splenic lesion is identified. PANCREAS: The pancreas is unremarkable in appearance. ADRENAL GLANDS: Within normal limits. KIDNEYS/RETROPERITONEUM: No renal calculi are identified. There is no hydronephrosis. No renal masses are identified. LYMPH NODES: No abdominal or pelvic lymphadenopathy. VASCULATURE: The abdominal aorta demonstrates atherosclerotic calcification, but is normal in caliber. MESENTERY/PERITONEUM: No free fluid. No masses. There is no free intraperitoneal gas. STOMACH: There is a small hiatal hernia. The remainder of the stomach is collapsed. SMALL BOWEL: The small bowel is normal in caliber. COLON: The colon is largely collapsed. No definite wall thickening is seen. There is diverticulosis of the sigmoid colon, without evidence of diverticulitis. APPENDIX: The appendix is surgically absent. URINARY BLADDER/PELVIC ORGANS: The urinary bladder is unremarkable. The uterus is unremarkable. BONES / SOFT TISSUES: Again seen is degenerative disc disease of the spine. There is grade I spondylolisthesis of L5 on S1 without change. CT/CT abdomen pelvis w IV con IMPRESSION: Small hiatal hernia. Sigmoid diverticulosis without evidence of diverticulitis. Electronically signed by: Frederic Garcias MD 06/30/2024 12:27 PM EDT
[2024-06-30 07:53] VITALS: BP 158/83; PULSE 64; RESP 25; TEMP 36.7; O2SAT 100; BMI 22.2
--- NOTE | 2024-06-30 08:03 | ED.GENADULT ---
HPI - General Adult General Chief complaint: General Medical Stated complaint: ?MIGRAINE, SOB, FENTON X3DAY PER EMS Time Seen by Provider: 06/30/24 08:03 History of Present Illness ED Provider: Nilsa VAUGHN narrative: The patient is a 73-year-old woman who says that she has a history of occipital neuralgia and ischemic colitis. She presents today saying that she is having significant pain in the back of her neck, her head, and in her abdomen. This is similar to previous episodes of similar symptoms in the past. She was here in the hospital almost 3 months ago with similar symptoms and was briefly hospitalized after having had a CT scan that showed findings of colitis. Her symptoms improved after 1 day of treatment and she was discharged with an antibiotics. The patient says today that she has not felt well for 2 days. She has had abdominal cramping and dizziness. She has nausea but is chronically unable to vomit. She has also had headache and neck pain typical of her occipital neuralgia Related Data Home Medications ?Medication ?Instructions ?Recorded ?Confirmed diltiazem HCl 60 mg 60 mg PO Q12H 05/12/23 04/11/24 capsule,extended release 12 hr ketorolac 0.5 % eye drops 1 drp ophthalmic-Left DAILY 05/12/23 04/11/24 latanoprost 0.005 % eye drops 1 drp ophthalmic-Left BID 05/12/23 04/11/24 onabotulinumtoxinA 100 unit 50 unit intradermal [id number] 05/12/23 04/11/24 solution for injection (Botox) tramadol 50 mg tablet 50 mg PO TID 05/12/23 04/11/24 carisoprodol 350 mg tablet (Soma) 350 mg PO TID PRN Muscle Spasm 04/11/24 04/11/24 clonazepam 1 mg tablet 1 mg PO DAILY@1200 04/11/24 04/11/24 dorzolamide 22.3 mg-timolol 6.8 1 drp ophthalmic-Left BID 04/11/24 04/11/24 mg/mL eye drops netarsudil 0.02 % eye drops 1 drp ophthalmic-Left BEDTIME 04/11/24 04/11/24 (Rhopressa) Previous Rx's ?Medication ?Instructions ?Recorded prochlorperazine maleate 10 mg 10 mg PO Q6H PRN nausea #14 tabs 06/30/24 tablet Allergies Allergy/AdvReac Type Severity Reaction Status Date / Time ibuprofen [IBUPROFEN] Allergy Unknown ABD PAIN Verified 06/30/24 08:02 Penicillins [PENICILLINS] Allergy Unknown RASH Verified 06/30/24 08:02 hydromorphone [From Dilaudid] AdvReac Unknown Verified 06/30/24 08:02 morphine AdvReac Agitated Verified 06/30/24 08:02 amlodipi AdvReac Intermediate Unknown Uncoded 06/30/24 08:02 Review of Systems Review of Systems: Yes all other systems are reviewed and are negative [facility] Past Medical History Medical History (Updated 06/30/24 @ 13:36 by Boom Ash MD) HTN (hypertension) Migraines Ischemic colitis Occipital neuralgia Ectopic atrial rhythm Incomplete left bundle branch block (LBBB) Surgical History (Updated 05/12/23 @ 09:31 by Alvina Norwood) History of back surgery Family History Family History (Updated 05/12/23 @ 09:32 by Alvina Norwood) Father Heart problem Mother Heart problem Social History Social History (Updated 05/12/23 @ 09:33 by Alvina Norwood) Alcohol intake: never Patient Tobacco Use Status: Never used Tobacco Smoked in Last 30 Days: No Use of substances other than those prescribed or required for medical reasons: No Substance Use Type: Marijuana Advance Directives: Yes Advance Directives Information Provided: Yes Advance Directives on File: No Do you have a plan to hurt others: No Plan Physical Exam ED Vital Signs: Vital Signs - 24 hr 06/30/24 07:53 06/30/24 11:00 06/30/24 12:24 Temperature 98.0 F 97.6 F Pulse Rate 64 75 78 Respiratory Rate 25 H 18 16 Blood Pressure 158/83 H 155/76 H 164/85 H Pulse Oximetry 100 95 97 Oxygen Delivery Method Room Air Room Air Room Air BMI result Body Mass Index 22.2 Const Other: The patient is a somewhat frail looking 73-year-old female who was awake and alert and says she is very uncomfortable. HENMT Other: Face is symmetrical. Mucous membranes moist. Eyes Other: Pupils are round equal, conjunctivae are clear, extraocular movements intact Neck Other: The patient has a lot of posterior neck tenderness which she says is chronic. She cannot flexor neck much but she says this is also chronic. Resp Effort & Inspection: normal respiratory effort Auscultation: clear to auscultation bilaterally Cardio Rate: regular rate Rhythm: regular rhythm Heart sounds: S1 normal heart sound present and S2 normal heart sound present GI Other: Abdomen is flat. No distention. The patient reports tenderness with palpation of the lower abdomen. Rectal exam shows no stool in the rectum. There was no diarrhea present. Skin Other: Skin is pale and dry Neuro Other: The patient is awake and alert with a normal mental status. Cranial nerves are grossly intact. She moves her extremities normally and appropriately. She seems grossly neurologically intact. Extrem Other: No peripheral edema, no calf swelling or tenderness Medications Administered Discontinued Medications Generic Name Dose Route Start Last Admin Trade Name Jersonq PRN Reason Stop Dose Admin Fentanyl 25 mcg 06/30/24 12:12 06/30/24 12:19 Fentanyl Citrate/Pf 100 Mcg/2 Ml Vial IVPUSH 06/30/24 12:13 25 mcg ONCE ONE Administration Protocol Sodium Chloride 1,000 mls @ 999 mls/hr 06/30/24 08:30 06/30/24 10:26 Ns IV 06/30/24 09:30 Infused .Q1H1M ELIF Infusion Lactated Ringer's 1,000 mls @ 999 mls/hr 06/30/24 10:00 06/30/24 12:16 Lr IV 06/30/24 11:00 Infused .Q1H1M ELIF Infusion Iohexol 100 ml 06/30/24 11:55 06/30/24 11:56 Iohexol 350 Mg/Ml 100 Ml Infus..Btl IV 06/30/24 11:56 85 ml ONCE ONE Administration Ketorolac Tromethamine 10 mg 06/30/24 08:18 06/30/24 08:49 Ketorolac Tromethamine 15 Mg/Ml Vial IVPUSH 06/30/24 08:19 10 mg ONCE ONE Administration Lorazepam 0.5 mg 06/30/24 08:18 06/30/24 08:49 Lorazepam 2 Mg/Ml Vial IVPUSH 06/30/24 08:19 0.5 mg STAT STA Administration Medical Decision Making Medical Decision Making MDM Narrative: The patient is a 73-year-old woman who presents complaining of a headache and neck pain. She says she has a history of occipital migraines. She is also complaining of abdominal pain and so she has a history of colitis. She has been unwell for about 2 days. The patient's vital signs are unremarkable. Her labs showed a mild elevation of her white count at around 12,000 which seems to be similar to previous values. Her CRP is normal. Other labs are unremarkable. She was given IV fluids and symptomatic treatment. She was very concerned that she might have a recurrence of colitis which she was found to have 2-1/2 months ago when she was here. We therefore did a CT of the abdomen and pelvis that shows no acute findings. She was reassured. She will be discharged with a prescription for prochlorperazine. Lab Data 06/30/24 08:57 06/30/24 08:57 Labs: Lab Results 06/30/24 06/30/24 06/30/24 Range/Units 08:35 08:57 09:31 WBC 12.5 H (4.8-10.8) X10*3/uL RBC 4.17 L (4.20-5.50) X10*6/uL Hgb 13.4 (12.0-16.0) g/dl Hct 37.8 (37.0-47.0) % MCV 90.6 (80.0-98.0) fL MCH 32.1 (27.0-33.0) pg MCHC 35.4 H (31.0-35.0) g/dl RDW 12.5 (11.0-16.0) % Plt Count 363 (160-400) X10*3/uL MPV 9.6 (9.4-12.3) fL Immature Gran % (Auto) 0.4 (0.0-0.4) % Neut % (Auto) 81.9 H (45-73) % Lymph % (Auto) 14.1 L (20-40) % [place] % (Auto) 3.0 (2-11) % Eos % (Auto) 0.1 (0-4) % Baso % (Auto) 0.5 (0-2) % Lymph # (Auto) 1.8 (1.2-4.9) X10*3/uL [place] # (Auto) 0.4 (0.1-1.2) X10*3/uL Eos # (Auto) 0.0 (0.0-0.4) X10*3/uL Baso # (Auto) 0.1 (0.0-0.2) X10*3/uL Abs Immat Gran (auto) 0.05 H (0.00-0.03) X10*3/uL Absolute Neuts (auto) 10.3 H (2.0-8.3) x10*3/uL Absolute Nucleated RBC 0.000 (0.0-0.012) X10*3/uL Nucleated RBC % (auto) 0.0 (0.0-0.2) /100WBC Sodium 138 (135-145) mmol/L Potassium 3.7 (3.3-5.1) mmol/L Chloride 109 H (96-108) mmol/L Carbon Dioxide 20 L (22-29) mmol/L Anion Gap 13 (12-20) BUN 11 (9-16) mg/dL Creatinine 0.70 (0.5-1.4) mg/dL Estim Creat Clear Calc 64.9 Estimated GFR > 60 Random Glucose 116 H (60-115) mg/dL Calcium 8.8 (8.4-10.2) mg/dL Magnesium 1.7 (1.6-2.6) mg/dL Total Bilirubin 0.4 (0.0-1.0) mg/dL Direct Bilirubin 0.1 (0.0-0.5) mg/dL AST 20 (5-31) U/L ALT 8 (0-31) U/L Alkaline Phosphatase 93 (39-117) U/L Troponin I High Sens < 2.7 (<3.5-17.0) ng/L C-Reactive Protein 0.14 (< or = 0.50) mg/dL Total Protein 7.0 (6.5-8.0) g/dL Albumin 4.0 (3.5-5.0) g/dL Lipase 19 (8-78) U/L Urine Color Yellow Urine Appearance Clear Urine pH 8.5 (5.0-9.0) Ur Specific [place] 1.010 (1.005-1.025) Urine Protein Negative (Neg-Trace) mg/dL Urine Glucose (UA) Negative (Negative) mg/dL Urine Ketones 15 (Negative) mg/dL Urine Blood Negative (Negative) Urine Nitrite Negative (Negative) Ur Leukocyte Esterase Negative (Negative) C. difficile Tox B Gene NEGATIVE (Negative) Influenza Type A (PCR) NEGATIVE (Negative) Influenza Type B (PCR) NEGATIVE (Negative) RSV RNA Qual (PCR) NEGATIVE (Negative) SARS-CoV-2 RNA (RT-PCR) NEGATIVE (Negative) Discharge Plan Discharge Clinical Impression: Abdominal pain, Headache Patient Disposition: Home, Self-Care Additional Instructions: Your testing in the emergency room today has been very reassuring. Please return to the BRAT diet for a few days. Continue Senokot. I have sent a prescription for an antinausea medication, prochlorperazine (also known as Compazine) which you may use on an as-needed basis for nausea. Please follow up soon with your regular doctor. Return to the emergency room if you feel significantly worse. Prescriptions: New prochlorperazine maleate 10 mg tablet 10 mg PO Q6H PRN (Reason: nausea) Qty: 14 0RF No Action carisoprodol [Soma] 350 mg tablet 350 mg PO TID PRN (Reason: Muscle Spasm) dorzolamide-timolol 22.3-6.8 mg/mL drops 1 drp ophthalmic-Left BID Rhopressa 0.02 % drops 1 drp ophthalmic-Left BEDTIME clonazepam 1 mg tablet 1 mg PO DAILY@1200 tramadol 50 mg tablet 50 mg PO TID diltiazem HCl 60 mg capsule,extended release 12 hr 60 mg PO Q12H latanoprost 0.005 % drops 1 drp ophthalmic-Left BID ketorolac 0.5 % drops 1 drp ophthalmic-Left DAILY Botox 100 unit recon soln 50 unit intradermal [id number] Referrals: Javier Stanford MD [Primary Care Provider] - Print Language: Argentine
--- NOTE | 2024-06-30 08:12 | ECG_ITS ---
Test Reason : ABD PAIN Blood Pressure : */* mmHG Vent. Rate : 61 BPM Atrial Rate : 61 BPM P-R Int : 138 ms QRS Dur : 116 ms QT Int : 452 ms P-R-T Axes : 76 -37 76 degrees QTcB Int : 455 ms Normal sinus rhythm Left axis deviation Incomplete left bundle branch block Minimal voltage criteria for LVH, may be normal variant ( [facility] product ) Nonspecific ST abnormality Abnormal ECG When compared with ECG of 11-Apr-2024 14:39, No significant change was found Referred By: Boom Ash Electronically Signed By: Luis Irving
[2024-06-30] MEDS: Ketorolac Tromethamine 15 MG/ML VIAL 10 MG IVPUSH (08:49)
[2024-06-30] MEDS: LORazepam 2 MG/ML VIAL 0.5 MG IVPUSH (08:49)
[2024-06-30] MEDS: 0.9 % Sodium Chloride 1,000 ML 999 ML IV (08:50)
[2024-06-30 09:03] LABS: MANUAL DIFF FLAG NO
[2024-06-30 09:04] LABS: Basophils Absolute Auto 0.1 X10*3/uL (0.0-0.2); Basophils Percent Auto 0.5 % (0-2); Eosinophils Percent Auto 0.1 % (0-4); Hematocrit 37.8 % (37.0-47.0); Hemoglobin 13.4 g/dl (12.0-16.0); Imm Gran Abs Auto 0.05 X10*3/uL (0.00-0.03); Imm Gran Pct Auto 0.4 % (0.0-0.4); Lymphocytes Absolute Auto 1.8 X10*3/uL (1.2-4.9); Lymphocytes Percent Auto 14.1 % (20-40); Mean Corpuscular HGB Conc 35.4 g/dl (31.0-35.0); Mean Corpuscular Hemoglobin 32.1 pg (27.0-33.0); Mean Corpuscular Volume 90.6 fL (80.0-98.0); Mean Platelet Volume 9.6 fL (9.4-12.3); Monocytes Absolute Auto 0.4 X10*3/uL (0.1-1.2); Neutrophils Absolute Auto 10.3 x10*3/uL (2.0-8.3); Neutrophils Percent Auto 81.9 % (45-73); Platelet Count 363 X10*3/uL (160-400); Red Blood Count 4.17 X10*6/uL (4.20-5.50); Red Cell Distribution Width 12.5 % (11.0-16.0); White Blood Count 12.5 X10*3/uL (4.8-10.8)
[2024-06-30 09:27] LABS: Alanine Aminotransferase 8 U/L (0-31); Alkaline Phosphatase 93 U/L (39-117); Anion Gap 13 (12-20); Aspartate Amino Transferase 20 U/L (5-31); Bilirubin Direct 0.1 mg/dL (0.0-0.5); Bilirubin Total 0.4 mg/dL (0.0-1.0); Blood Urea Nitrogen 11 mg/dL (9-16); C Reactive Protein 0.14 mg/dL (< or = 0.50); Calcium 8.8 mg/dL (8.4-10.2); Carbon Dioxide 20 mmol/L (22-29); Chloride 109 mmol/L (96-108); Creatinine Clr Calc Pharmacy 64.9; Estimated Glomerular Filt Rate > 60; Glucose Random 116 mg/dL (60-115); Lipase 19 U/L (8-78); Magnesium 1.7 mg/dL (1.6-2.6); Potassium 3.7 mmol/L (3.3-5.1); Sodium 138 mmol/L (135-145)
[2024-06-30 09:34] LABS: Troponin-I High Sensitivity < 2.7 ng/L (<3.5-17.0)
[2024-06-30 09:43] LABS: Appearance Urine Clear; Color Urine Yellow; Glucose Urine UA Negative (Negative); Leukocyte Esterase Urine Negative (Negative); Nitrite Urine Negative (Negative); PH 8.5 (5.0-9.0); Urine Blood Negative (Negative); Urine Ketones 15 mg/dL (Negative); Urine Protein Negative (Neg-Trace)
[2024-06-30 10:05] LABS: Influenza A PCR NEGATIVE (Negative); Influenza B PCR NEGATIVE (Negative); Resp Syncy Virus RNA Qual PCR NEGATIVE (Negative); SARS COV2 PCR INHOUSE NEGATIVE (Negative)
[2024-06-30 10:06] LABS: CDiff Gene PCR NEGATIVE (Negative)
[2024-06-30 11:00] VITALS: BP 155/76; PULSE 75; RESP 18; O2SAT 95
[2024-06-30] MEDS: Lactated Ringers 1,000 ML 999 ML IV (11:00)
[2024-06-30] MEDS: iohexoL 350 MG/ML 100 ML INFUS..BTL IV (11:56)
[2024-06-30] MEDS: fentaNYL citrate/PF 100 MCG/2 ML VIAL 25 MCG IVPUSH (12:19)
[2024-06-30 12:24] VITALS: BP 164/85; PULSE 78; RESP 16; TEMP 36.4; O2SAT 97
== END 2024-06-30 15:19 | disposition home or self-care (01) ==
PROVIDERS: Emergency Provider Emergency Medicine; PCP Internal Medicine
DX: R10.2 Pelvic and perineal pain (principal); M54.50 Low back pain, unspecified; M54.2 Cervicalgia; I44.7 Left bundle-branch block, unspecified; R51.9 Headache, unspecified; R25.2 Cramp and spasm; R06.02 Shortness of breath; R42 Dizziness and giddiness; Z03.818 Encounter for observation for suspected exposure to other biological agents ruled out; Z79.899 Other long term (current) drug therapy
CPT/HCPCS: 0241U; 36415; 74177; 80048; 80076; 81003; 83690; 83735; 84484; 85025; 86140; 87493; 93005; 96361; 96374; 96375; 99285; J1885; J2060; J3010; J7120; Q9967

== ENCOUNTER → 2024-06-30 08:12 | Outpatient (BNV) | payer MEDICARE, SELFPAY | PROVIDERS: Emergency Provider Emergency Medicine; PCP Internal Medicine; Visit Provider Internal Medicine Cardiovascular Disease | DX: I45.19 Other right bundle-branch block (principal); R94.31 Abnormal electrocardiogram [ECG] [EKG]; R10.9 Unspecified abdominal pain | CPT/HCPCS: 93010 ==

== ENCOUNTER → 2024-06-30 10:58 | Outpatient (BNV) | payer MEDICARE, SELFPAY | PROVIDERS: Emergency Provider Emergency Medicine; PCP Internal Medicine; Visit Provider Radiology Diagnostic Radiology | DX: K57.30 Diverticulosis of large intestine without perforation or abscess without bleeding (principal); K44.9 Diaphragmatic hernia without obstruction or gangrene | CPT/HCPCS: 74177 ==

== ENCOUNTER 2024-08-08 10:47 | Outpatient (AMB) | payer MEDICARE, SELFPAY ==
--- NOTE | 2024-08-08 10:53 | A.OFFVIS_ITS ---
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3-6.8 mg/mL 1 drp ophthalmic-Left BID ketorolac 0.5% 1 drp ophthalmic-Left DAILY latanoprost 0.005% 1 drp ophthalmic-Left BID netarsudil 0.02% (Rhopressa) 1 drp ophthalmic-Left BEDTIME onabotulinumtoxinA (Botox) 50 units intradermal [id number] prochlorperazine maleate 10 mg PO Q6H PRN tramadol 50 mg PO BID HPI Comments Details: Taryn Returns for follow-up. Previously, seen at [facility] but not recently. History of left bundle-branch block, atrial arrhythmias. On diltiazem. No known coronary disease, myocardial infarction or cardiomyopathy. For the most part, she is doing fine. At nighttime, she is noticing some palpitations. [facility] Medical History (Updated 07/01/24 @ 00:01 by Zan Diamond) HTN (hypertension) Migraines Ischemic colitis Occipital neuralgia Ectopic atrial rhythm Incomplete left bundle branch block (LBBB) Surgical History History of back surgery Family History Father Heart problem Mother Heart problem Social History Alcohol intake: never Patient Tobacco Use Status: Never used Tobacco Substance Use Type: Marijuana Review of Systems Const Denies chills, Denies fatigue, Denies fever(s), Denies frequent falls, Denies weakness, Denies weight gain and Denies weight loss ENT Denies dizziness Card Denies chest pain, Denies leg edema, Denies lightheadedness, Denies palpitations, Denies dyspnea and Denies dyspnea on exertion Resp Denies cough, Denies dyspnea and Denies dyspnea on exertion GI Denies hematochezia Musc Denies abnormal gait, Denies muscle weakness, Denies numbness, Denies radiating pain into limb and Denies tingling Neuro Denies abnormal gait, Denies dizziness, Denies frequent falls, Denies numbness, Denies tingling and Denies weakness Endo Denies fatigue and Denies palpitations Physical Exam Vital Signs: Last Vital Signs Pulse 61 08/08/24 10:55 BP 140/80 H 08/08/24 10:55 BMI result Body Mass Index 21.6 Const General: comfortable and no acute distress Orientation/consciousness: patient oriented x3 HEENT Other: Unremarkable Head: Yes normal to inspection Neck Neck: Yes normal visual inspection Chest Chest palpation & inspection: normal inspection of the chest Resp Auscultation: clear to auscultation bilaterally Cardio Palpation: normal PMI Heart sounds: S1 normal heart sound present, S2 normal heart sound present, no gallops, no murmurs and no rubs GI Palpation (GI): Soft to palpation Back/Spine/Pelvis Other: unremarkable Skin General skin exam: no rashes or lesions noted Neuro General: patient oriented x3 Extrem General: Yes normal to inspection Psych Mental Status: mental status grossly normal Assessment & Plan Assessment & Plan (1) Incomplete left bundle branch block (LBBB): Code(s): I44.7 - Left bundle-branch block, unspecified Category: Medical (2) Ectopic atrial rhythm: Code(s): I49.1 - Atrial premature depolarization Category: Medical Plan In a prior EKG, possible ectopic atrial rhythm and with an incomplete left bundle-branch block pattern. Echocardiogram with LVEF of 60-65% and otherwise unremarkable. Exercise stress echocardiogram from [facility] 2014 was negative. Echo exercise duration was 9 minutes 20 seconds. Old NAVYA from 2008 from [facility] shows underlying sinus rhythm, supraventricular ectopy, paroxysmal atrial tachycardia, ventricular ectopy, bigeminy, trigeminy. Overall, longstanding incomplete left bundle-branch block without any evidence of cardiomyopathy or ischemic heart disease. No specific management and continue to monitor once a year. With regard to the palpitations, possibly from isolated PACs/PVCs. She is again taken diltiazem for a long time and no further changes. We will recheck Holter monitor. With regard to the elevated blood pressure, she states that she checks them at home and they are well within normal limits. She blames it on white coat hypertension. Follow-up in 1 year. In the interim, she will call with concerns. Total time spent including review of outside records, counseling, documentation, coordination of care 32 minutes. Discussion Notes We discussed the management and evaluation of the patient's palpitations and hypertension. I explained the necessity for cardiac monitoring to track p otential arrhythmic events and investigate her nocturnal palpitations. The benefits of having this evaluation in the office were communicated to ensure patient convenience and accuracy. Regarding hypertension, the conversation included a review of recent blood pressure trends and acknowledged significant elevations over several months. I emphasized the importance of continued monitoring and potentially antihypertensive treatment to prevent complications. I noted that her hospital- associated elevations might relate to episodes of gastroparesis with migraines, impacting her overall blood pressure control. Patient was informed and verbally consented to the use of an ambient scribe for clinic note documentation during this visit. Orders: Orders ECG 3 day holter monitor Today R00.2 - Palpitations Patient Instructions: - Continue monitoring your blood pressure at home and record the readings. - Be observant of increases in palpitations or changes in symptoms, particularly at night. - Attend the cardiac monitoring test scheduled as discussed. - Note any new or worsening symptoms and contact the office if concerns arise. - Follow your current medication regimen and update your healthcare provider on any changes or side effects. - Consider lifestyle modifications that may aid in managing your blood pressure. Coding Level of Care Code Est Pt Level 4 (46399) Complex EM visit Add On G2211 Diagnoses Incomplete left bundle branch block (LBBB) I44.7 Ectopic atrial rhythm I49.1
[2024-08-08 10:55] VITALS: BP 140/80; PULSE 61; BMI 21.6
== END 2024-08-08 11:24 | disposition home or self-care (01) ==
LOC: HO.HCS 10:48
PROVIDERS: PCP Internal Medicine; Visit Provider Internal Medicine
DX: I44.7 Left bundle-branch block, unspecified (principal); I49.1 Atrial premature depolarization
CPT/HCPCS: 99214; G2211

== ENCOUNTER → 2024-08-08 10:47 | Outpatient (BNVA) | payer MEDICARE, SELFPAY | PROVIDERS: PCP Internal Medicine; Visit Provider Internal Medicine | DX: I44.7 Left bundle-branch block, unspecified (principal); I49.1 Atrial premature depolarization | CPT/HCPCS: 99212 ==

== ENCOUNTER → 2024-09-07 12:59 | Outpatient (REF) | payer MEDICARE, SELFPAY | LOC: HO.CARD 12:59 | PROVIDERS: Visit Provider Internal Medicine | DX: R00.2 Palpitations (principal) | CPT/HCPCS: 93242 ==

== ENCOUNTER → 2024-09-07 13:02 | Outpatient (BNV) | payer MEDICARE, SELFPAY | PROVIDERS: Visit Provider Internal Medicine Cardiovascular Disease | DX: I49.3 Ventricular premature depolarization (principal); R00.2 Palpitations | CPT/HCPCS: 93244 ==